=== PATIENT | female | born 1940 | race Caucasian/White ===

== ENCOUNTER → 2016-07-10 | Outpatient (CLI) | payer OTHER ==
[~2016-07-10] MED LIST: ACP20 PO; CHOL1TAB12 PO; CZR50 PO; IBUP-1050 PO; LEVO100T PO; LOSA1TAB38 PO; RABE20TA5 PO; SIMV20TA2 PO; SIMV40TA4 PO; VALA1TAB2 PO
[2016-07-10 15:13] LABS: BLOOD UREA NITROGEN 11 mg/dl (7-18); BUN/CREATININE RATIO 14.5 (10-20); CALCIUM 8.9 mg/dl (8.5-10.1); CARBON DIOXIDE 25 mmol/L (21-32); CHLORIDE 109 mmol/L (98-107); CREATININE 0.77 mg/dl (0.60-1.20); GLUCOSE 89 mg/dl (70-99); POTASSIUM 3.8 mmol/L (3.5-5.1); SODIUM 143 mmol/L (136-145)
[2016-07-10 15:24] LABS: THYROID STIMULATING HORMONE 0.739 uIu/ml (0.300-4.500)
== END | disposition home or self-care (01) ==
LOC: C.LAB 12:06
PROVIDERS: ATTEND Internal Medicine Geriatric Medicine
DX: E03.9 Hypothyroidism, unspecified (principal); E55.9 Vitamin D deficiency, unspecified; I10 Essential (primary) hypertension

== ENCOUNTER 2016-07-21 10:55 | Emergency (ER) | payer OTHER ==
[~2016-07-21] VITALS: Ht 165.1 cm; Wt 104.0 kg
[~2016-07-21 10:55] MED LIST changes: -CHOL1TAB12 PO; -LOSA1TAB38 PO; -RABE20TA5 PO; -SIMV40TA4 PO
[2016-07-21 11:00] VITALS: TEMP 36.5; Ht 165.1 cm; Wt 104.0 kg
[2016-07-21 11:27] VITALS: O2SAT 97
[2016-07-21 11:50] LABS: BASO % 0.4 %; BASO ABS # 0.03 K/uL (0-0.2); COMPLETE YES; EOS % 2.8 %; HEMATOCRIT 41.1 % (37-47); IG% 0.5 %; LYMPH % 34.9 %; LYMPH ABS # 2.61 K/uL (1.2-3.4); MEAN CELL VOLUME 87.3 fL (80-100); MEAN CORPUSCULAR HEMOGLOBIN 29.5 pg (25-34); MEAN CORPUSCULAR HGB CONC 33.8 g/dl (32-36); MONO % 11.1 %; NEUT % 50.3 %; PLATELET COUNT 250 K/uL (130-400); RED BLOOD COUNT 4.71 M/uL (4.2-5.4); WHITE BLOOD COUNT 7.47 K/uL (4.8-10.8)
--- NOTE | 2016-07-21 11:53 | DIAGNOSTIC IMAGING REPORT ---
SINGLE VIEW CHEST CLINICAL HISTORY: Cough. FINDINGS: An AP, portable, upright chest radiograph is compared to study dated 01/11/2015 and correlated with chest CT dated 03/06/2014. The examination is degraded by portable technique, large body habitus, and patient rotation. The cardiomediastinal silhouette is unremarkable. Chronic interstitial thickening is unchanged. No airspace consolidation or pleural effusion is seen. No pneumothorax is identified. The skeletal structures are osteopenic. The bony thorax is grossly intact. IMPRESSION: No acute cardiopulmonary abnormality. Electronically signed by: Philippe Smith M.D. 07/21/2016 11:52 AM Dictated Date/Time: 07/21/2016 11:51 AM
[2016-07-21 12:00] LABS: BUN/CREATININE RATIO 11.6 (10-20); CALCIUM 9.2 mg/dl (8.5-10.1); CREATININE 0.86 mg/dl (0.60-1.20); POTASSIUM 3.7 mmol/L (3.5-5.1)
[2016-07-21] MEDS ORDERED: LOSA1TAB38 PO (12:00)
[2016-07-21] MEDS ORDERED: SIMV40TA4 PO (12:00)
[2016-07-21] MEDS ORDERED: RABE20TA5 PO (12:00)
[2016-07-21] MEDS ORDERED: CHOL1TAB12 PO (12:00)
[2016-07-21] MEDS ORDERED: ALBUTEROL HFA 8 GM INHALER INH STA (12:42)
--- NOTE | 2016-07-21 13:31 | EMERGENCY ROOM VISIT NOTE ---
History Report prepared by Lorna: Santos Saul Under the Supervision of: Dr. Ben Garcia M.D. First contact with patient: 12:10 Chief Complaint: ILLNESS Stated Complaint: DOCTOR SENT IN FOR CHEST XRAY History of Present Illness The patient is a 76 year old female who presents to the Emergency Room with complaints of a persistent cough starting a few weeks ago. She reports a light yellow colored sputum without any blood. She states that she can feel something in her chest rattling at night. She was evaluated by her PCP about a week ago. She was prescribed a Z-pack. She finished the Z-pack 2 days ago without relief. One of her family members recently had pneumonia and she visited the family member very frequently. She denies any fevers, chills, chest pain, nausea, vomiting, abdominal pain, or any other complaints. She does not have a history of smoking cigarettes. Source of History: patient Onset: a few weeks ago Position: other (global) Quality: other (cough) Timing: other (persistent) Modifying Factors (Relieving): other (Z-pack without relief) Associated Symptoms: No abdominal pain, No chest pain, No chills, No fevers , No nausea, No vomiting Review of Systems All systems have been listed, reviewed, and are negative other than those previously mentioned. Please see Additional Medical History Sheet. Past Medical & Surgical Medical Problems: (1) Cold sore (2) Fall (3) GERD (gastroesophageal reflux disease) (4) Hypertension (5) Hypothyroid (6) Knee pain (7) Radius fracture Family History Cancer Diabetes mellitus Gallbladder disease Heart disease Hypertension Seizures Social History Smoking Status: Never Smoker Marital Status: Occupation Status: employed Current/Historical Medications Scheduled Cholecalciferol (Vitamin D3), 3,000 UNITS PO DAILY Levothyroxine Sodium (Synthroid), 100 MCG PO DAILY Losartan Potassium (Cozaar), 100 MG PO DAILY Rabeprazole Sodium (Aciphex), 20 MG PO DAILY Simvastatin (Zocor), 40 MG PO HS Allergies Coded Allergies: Sulfa Drugs (Verified Allergy, Intermediate, HIVES, 07/21/16) Penicillins (Verified Allergy, Unknown, UNKNOWN, 07/21/16) Warfarin and Related (Verified Allergy, Unknown, RASH, 07/21/16) Acetaminophen (Verified Adverse Reaction, Unknown, SKAKING, 07/21/16) Omeprazole (Verified Adverse Reaction, Unknown, HEART PROBLEMS, 07/21/16) Oxycodone (Verified Adverse Reaction, Unknown, SHAKING, 07/21/16) Physical Exam Vital Signs Date Time Temp Pulse Resp B/P Pulse Ox O2 Delivery O2 Flow Rate FiO2 07/21/16 14:39 78 18 170/82 95 07/21/16 12:44 79 22 174/86 96 Room Air 07/21/16 12:14 77 07/21/16 11:27 79 20 211/119 97 Room Air 07/21/16 11:27 97 Room Air 07/21/16 11:00 36.5 87 20 188/98 96 Room Air Physical Exam GENERAL: Patient awake, alert, oriented x 3. Patient follows commands. Patient does not appear toxic. Patient is adequately hydrated and well- nourished. SKIN: No erythema, pallor, cyanosis or rash HEENT: Normal head, pupils equal, reactive to light and accommodation. Ears normal. Oral cavity and posterior pharynx appear normal. Neck: Without adenopathy, no neck vein distention. LUNGS: Expiratory wheezes in all morales. HEART: No murmurs. No gallops. No rubs ABDOMEN: Obese. No masses, no rebound, no hepatomegaly or splenomegaly. EXTREMITIES: No signs of trauma. No pedal or pretibial edema. No calf or thigh tenderness. NEUROLOGIC: Cranial nerves II-XII within normal limits. No gross motor sensory function deficits. Medical Decision & Procedures ER Provider Diagnostic Interpretation: X ray results are stated below per my interpretation and the radiologist's interpretation. SINGLE VIEW CHEST CLINICAL HISTORY: Cough. FINDINGS: An AP, portable, upright chest radiograph is compared to study dated 01/11/2015 and correlated with chest CT dated 03/06/2014. The examination is degraded by portable technique, large body habitus, and patient rotation. The cardiomediastinal silhouette is unremarkable. Chronic interstitial thickening is unchanged. No airspace consolidation or pleural effusion is seen. No pneumothorax is identified. The skeletal structures are osteopenic. The bony thorax is grossly intact. IMPRESSION: No acute cardiopulmonary abnormality. Electronically signed by: Philippe Smith M.D. 07/21/2016 11:52 AM Dictated Date/Time: 07/21/2016 11:51 AM Laboratory Results 07/21/16 11:30 Red Blood Count 4.71, Mean Corpuscular Volume 87.3, Mean Corpuscular Hemoglobin 29.5, Mean Corpuscular Hemoglobin Concent 33.8, Mean Platelet Volume 10.0, Neutrophils (%) (Auto) 50.3, Lymphocytes (%) (Auto) 34.9, Monocytes (%) (Auto) 11.1, Eosinophils (%) (Auto) 2.8, Basophils (%) (Auto) 0.4, Neutrophils # (Auto ) 3.75, Lymphocytes # (Auto) 2.61, Monocytes # (Auto) 0.83, Eosinophils # (Auto ) 0.21, Basophils # (Auto) 0.03 07/21/16 11:30 Test 07/21/16 11:30 White Blood Count 7.47 K/uL (4.8-10.8) Red Blood Count 4.71 M/uL (4.2-5.4) Hemoglobin 13.9 g/dL (12.0-16.0) Hematocrit 41.1 % (37-47) Mean Corpuscular Volume 87.3 fL (80-100) Mean Corpuscular Hemoglobin 29.5 pg (25-34) Mean Corpuscular Hemoglobin Concent 33.8 g/dl (32-36) Platelet Count 250 K/uL (130-400) Mean Platelet Volume 10.0 fL (7.4-10.4) Neutrophils (%) (Auto) 50.3 % Lymphocytes (%) (Auto) 34.9 % Monocytes (%) (Auto) 11.1 % Eosinophils (%) (Auto) 2.8 % Basophils (%) (Auto) 0.4 % Neutrophils # (Auto) 3.75 K/uL (1.4-6.5) Lymphocytes # (Auto) 2.61 K/uL (1.2-3.4) Monocytes # (Auto) 0.83 K/uL (0.11-0.59) Eosinophils # (Auto) 0.21 K/uL (0-0.5) Basophils # (Auto) 0.03 K/uL (0-0.2) RDW Standard Deviation 41.8 fL (36.4-46.3) RDW Coefficient of Variation 13.0 % (11.5-14.5) Immature Granulocyte % (Auto) 0.5 % Immature Granulocyte # (Auto) 0.04 K/uL (0.00-0.02) Anion Gap 10.0 mmol/L (3-11) Est Creatinine Clear Calc Drug Dose 67.6 ml/min Estimated GFR () 76.6 Estimated GFR (Non- 66.1 BUN/Creatinine Ratio 11.6 (10-20) Calcium Level 9.2 mg/dl (8.5-10.1) Total Bilirubin 0.5 mg/dl (0.2-1) Aspartate Amino Transf (AST/SGOT) 28 U/L (15-37) Alanine Aminotransferase (ALT/SGPT) 26 U/L (12-78) Alkaline Phosphatase 101 U/L (45-117) Total Protein 7.4 gm/dl (6.4-8.2) Albumin 3.7 gm/dl (3.4-5.0) Globulin 3.7 gm/dl (2.5-4.0) Albumin/Globulin Ratio 1.0 (0.9-2) Chemistry Specimen Hemolysis Laboratory results as stated above per my review. Medications Administered Medications (Trade) Dose Ordered Sig/Addie Route Start Time Stop Time Status Last Admin Dose Admin Albuterol (Ventolin Hfa Inhaler) 2 puffs NOW STAT INH 07/21/16 12:42 07/21/16 12:44 DC 07/21/16 12:42 2 PUFFS ECG Indication: other (cough) Rate (beats per minute): 74 Rhythm: normal sinus Findings: no acute ischemic change, no ectopy, other (Minimal voltage criteria for LVH) ED Course 1210: Past medical records reviewed. The patient was evaluated in room C10. A complete history and physical examination was performed. 1242: Albuterol 2 puffs INH 1420: Upon reevaluation, the patient appeared to have improvement of her symptoms. I discussed today's findings with her. She verbalized agreement of the treatment plan. The patient was discharged home. Medical Decision Differential diagnosis includes but is not limited to bronchitis, viral/ bacterial infection, pneumonia, asthma. The patient has been coughing for over one week. It is nonproductive. She has no fever. She completed a course of azithromycin. Chest x-ray today does not reveal an infiltrate. White count is not elevated. The patient appears to have a viral cause for her coughing. The patient was started on an albuterol inhaler and will continue using that until the cough is subsided. I do not believe the patient requires additional antibiotics at this time. Impression Primary Impression: Acute bronchitis Scribe Attestation The scribe's documentation has been prepared under my direction and personally reviewed by me in its entirety. I confirm that the note above accurately reflects all work, treatment, procedures, and medical decision making performed by me. Departure Information Dispostion Home / Self-Care Referrals Bc Calix M.D. (PCP) Forms HOME CARE DOCUMENTATION FORM, IMPORTANT VISIT INFORMATION, WORK / SCHOOL INSTRUCTIONS Patient Instructions Bronchitis Acute Dc, My [facility] Additional Instructions 2 puffs of your inhaler every 4 hours until you're cough has subsided. REST Follow-up with your family physician within the next 2 weeks. Return here sooner if you become more short of breath.
[2016-07-21 14:39] VITALS: BP 170/82; PULSE 78; O2SAT 95
== END 2016-07-21 14:39 | disposition home or self-care (01) ==
LOC: C.EDB 10:57 → C.EDC 14:39
DX: J20.9 Acute bronchitis, unspecified (principal); I10 Essential (primary) hypertension; E03.9 Hypothyroidism, unspecified; K21.9 Gastro-esophageal reflux disease without esophagitis; Z87.81 Personal history of (healed) traumatic fracture; Z79.899 Other long term (current) drug therapy; Z88.0 Allergy status to penicillin; Z88.2 Allergy status to sulfonamides; Z88.5 Allergy status to narcotic agent; Z88.6 Allergy status to analgesic agent; Z88.8 Allergy status to other drugs, medicaments and biological substances

== ENCOUNTER → 2016-08-18 | Outpatient (CLI) | payer OTHER ==
[~2016-08-18] MED LIST changes: -ACP20 PO; +CHOL1TAB12 PO; -CZR50 PO; -IBUP-1050 PO; +LOSA1TAB38 PO; +RABE20TA5 PO; -SIMV20TA2 PO; +SIMV40TA4 PO; -VALA1TAB2 PO
--- NOTE | 2016-08-18 13:12 | MAMMOGRAPHY REPORT ---
BILATERAL DIGITAL SCREENING MAMMOGRAM WITH CAD: 08/18/2016 TECHNIQUE: Current study was also evaluated with a Computer Aided Detection (CAD) system. Bilatera l CC and MLO and XCCL views were obtained. COMPARISON: Comparison is made to exams dated: 08/18/2015 mammogram, 08/13/2013 mammogram, 08/12/2012 mammogram, 08/10/2011 mammogram, 08/08/2010 mammogram, and 08/06/2009 mammogram - [facility]. BREAST COMPOSITION: The tissue of both breasts is almost entirely fatty. FINDINGS: No suspicious masses, calcifications, or areas of architectural distortion are noted in e ither breast. There has been no significant interval change compared to prior exams. Again noted ar e multiple small circumscribed benign-appearing masses scattered in bilateral breasts, which are con sidered benign given the multiplicity and bilaterality. A biopsy marker clip is again noted in the right upper outer quadrant. IMPRESSION: ACR BI-RADS CATEGORY 2: BENIGN There is no mammographic evidence of malignancy. A 1 year screening mammogram is recommended. The p atient will receive written notification of the results. Approximately 10% of breast cancers are not detected with mammography. A negative mammographic repor t should not delay biopsy if a clinically suggestive mass is present. Meghan Kwan M.D. ah/:08/18/2016 12:35:14 Agricultural Real Estate Agent: Bhumi THOMAS(Ivy)(M), [facility] letter sent: Normal 1/2 BI-RADS Code: ACR BI-RADS Category 2: Benign
== END | disposition home or self-care (01) ==
LOC: C.MAMM 11:39
PROVIDERS: ATTEND Internal Medicine Geriatric Medicine
DX: Z12.31 Encounter for screening mammogram for malignant neoplasm of breast (principal)

== ENCOUNTER → 2017-01-15 | Outpatient (CLI) | payer OTHER ==
[2017-01-15 12:17] LABS: BASO % 0.6 %; BASO ABS # 0.05 K/uL (0-0.2); COMPLETE YES; EOS % 3.1 %; HEMATOCRIT 38.6 % (37-47); IG% 0.4 %; LYMPH % 27.9 %; LYMPH ABS # 2.52 K/uL (1.2-3.4); MEAN CELL VOLUME 90.2 fL (80-100); MEAN CORPUSCULAR HEMOGLOBIN 30.1 pg (25-34); MEAN CORPUSCULAR HGB CONC 33.4 g/dl (32-36); MEAN PLATELET VOLUME 10.4 fL (7.4-10.4); MONO % 10.5 %; NEUT % 57.5 %; PLATELET COUNT 223 K/uL (130-400); RED BLOOD COUNT 4.28 M/uL (4.2-5.4); WHITE BLOOD COUNT 9.03 K/uL (4.8-10.8)
[2017-01-15 12:35] LABS: BLOOD UREA NITROGEN 12 mg/dl (7-18); CALCIUM 8.7 mg/dl (8.5-10.1); CARBON DIOXIDE 25 mmol/L (21-32); CHLORIDE 106 mmol/L (98-107); CREATININE 0.82 mg/dl (0.60-1.20); GLUCOSE 92 mg/dl (70-99); POTASSIUM 4.4 mmol/L (3.5-5.1); SODIUM 138 mmol/L (136-145)
[2017-01-15 12:45] LABS: CHOLESTEROL 144 mg/dl (0-200); CHOLESTEROL/HDL RATIO 2.8; HDL CHOLESTEROL 52 mg/dl; LDL CHOLESTEROL CALCULATED 64 mg/dl; THYROID STIMULATING HORMONE 0.637 uIu/ml (0.300-4.500); TRIGLYCERIDES 141 mg/dl (0-150); VERY LOW DENSITY LIPOPROT CALC 28 mg/dl
== END | disposition home or self-care (01) ==
LOC: C.LAB 11:08
PROVIDERS: ATTEND Internal Medicine Geriatric Medicine
DX: E78.5 Hyperlipidemia, unspecified (principal); I10 Essential (primary) hypertension; E03.9 Hypothyroidism, unspecified; E55.9 Vitamin D deficiency, unspecified; M19.90 Unspecified osteoarthritis, unspecified site

== ENCOUNTER → 2017-04-02 | Outpatient (CLI) | payer OTHER ==
--- NOTE | 2017-04-02 15:50 | DIAGNOSTIC IMAGING REPORT ---
R SHOULDER MIN 2 VIEWS ROUTINE CLINICAL HISTORY: 77 years-old Female presenting with SHOULDER PAIN. TECHNIQUE: Internal rotation, external rotation, and Grashey views of the right shoulder were obtained. COMPARISON: Plain radiographs of the left shoulder from 2007. FINDINGS: Glenohumeral and acromioclavicular joints congruent. Bony spurring suggested along the undersurface of the acromion. Minimal osteophytosis suggested at the inferior aspect of the humeral head. No acute fracture or malalignment. Visualized portion of the right hemithorax normal. IMPRESSION: Bony spurring along the undersurface of the acromion suggest chronic impingement. Electronically signed by: Cyrus Bui M.D. 04/02/2017 3:48 PM Dictated Date/Time: 04/02/2017 3:47 PM
== END | disposition home or self-care (01) ==
LOC: C.RADBC 15:05
PROVIDERS: ATTEND Internal Medicine Geriatric Medicine
DX: M25.519 Pain in unspecified shoulder (principal); M75.91 Shoulder lesion, unspecified, right shoulder

== ENCOUNTER 2017-08-10 13:35 | Emergency (ER) | payer OTHER ==
[~2017-08-10] VITALS: Ht 165.1 cm; Wt 107.0 kg
[2017-08-10 13:42] VITALS: TEMP 36.4; Ht 165.1 cm; Wt 107.0 kg
[2017-08-10] MEDS ORDERED: SODIUM CHLORIDE 0.9% 1000ML 1,000 ML IV STA (14:02)
[2017-08-10] MEDS ORDERED: MECLIZINE HCL 25 MG TAB PO STA (14:02)
--- NOTE | 2017-08-10 14:12 | EMERGENCY ROOM VISIT NOTE ---
History Report prepared by Lorna: Tammi Melgoza Under the Supervision of: Dr. Manuel Kearns M.D. First contact with patient: 13:45 Chief Complaint: DIZZY Stated Complaint: DIZZY, NECK CRACKS Nursing Triage Summary: patient states she was getting her hair done and "I was geetting my hair washed and the lady put my seat up and all of a sudden I got very very dizzy." patient states she continues to feel dizzy. hx vertigo History of Present Illness The patient is a 77 year old female who presents to the Emergency Room with complaints of an episode of dizziness occurring this morning. The patient states she was laying flat while getting her hair done and when she went to get up she started to feel dizzy. She describes her dizziness as "room spinning". The patient had an episode of vertigo 10 years ago. She reports her symptoms feel similar to when she last had vertigo. The patient states moving her head worsens her dizziness. The patient notes she fell two years ago and broke her wrist two years ago. She states she has had constant neck cracking since she fell. The patient has a history of a bone spur in her right shoulder. She denies any fevers, chills, nausea, vomiting, or urinary burning. Source of History: patient Onset: this morning Position: other (generalized) Quality: other (dizziness) Timing: other (episode) Associated Symptoms: No fevers, No nausea, No vomiting, No urinary symptoms Review of Systems See HPI for pertinent positives and negatives. A total of ten systems were reviewed and were otherwise negative. Past Medical & Surgical Medical Problems: (1) Cold sore (2) Fall (3) GERD (gastroesophageal reflux disease) (4) Hypertension (5) Hypothyroid (6) Knee pain (7) Radius fracture Family History Cancer Diabetes mellitus Gallbladder disease Heart disease Hypertension Seizures Social History Smoking Status: Never Smoker Marital Status: Occupation Status: employed Current/Historical Medications Scheduled Cholecalciferol (Vitamin D3), 3,000 UNITS PO DAILY Levothyroxine Sodium (Synthroid), 100 MCG PO DAILY Losartan Potassium (Cozaar), 100 MG PO DAILY Rabeprazole Sodium (Aciphex), 20 MG PO DAILY Simvastatin (Zocor), 40 MG PO HS Scheduled PRN Meclizine Hcl (Meclizine Hcl), 25 MG PO TID PRN for Dizziness Allergies Coded Allergies: Sulfa Drugs (Verified Allergy, Intermediate, HIVES, 08/10/17) Penicillins (Verified Allergy, Unknown, UNKNOWN, 08/10/17) Warfarin and Related (Verified Allergy, Unknown, RASH, 08/10/17) Acetaminophen (Verified Adverse Reaction, Unknown, SKAKING, 08/10/17) Omeprazole (Verified Adverse Reaction, Unknown, HEART PROBLEMS, 08/10/17) Oxycodone (Verified Adverse Reaction, Unknown, SHAKING, 08/10/17) Physical Exam Vital Signs Date Time Temp Pulse Resp B/P (MAP) Pulse Ox O2 Delivery O2 Flow Rate FiO2 08/10/17 17:11 65 18 140/82 97 08/10/17 16:12 73 15 177/89 97 Room Air 08/10/17 14:31 68 08/10/17 14:16 96 Room Air 08/10/17 13:42 36.4 69 20 149/84 97 Room Air Physical Exam GENERAL: Awake, alert, anxious-appearing, in no distress HENT: Normocephalic, atraumatic. Reproducible vertigo with head movements. Oropharynx unremarkable. Dry MM. EYES: Normal conjunctiva. Sclera non-icteric. Slight bilateral horizontal nystagmus. NECK: Supple. No nuchal rigidity. FROM. No JVD. RESPIRATORY: Clear to auscultation. CARDIAC: Regular rate, normal rhythm. Extremities warm and well perfused. Pulses equal. ABDOMEN: Soft, non-distended. No tenderness to palpation. No rebound or guarding. No masses. RECTAL: Deferred. MUSCULOSKELETAL: Chest examination reveals no tenderness. The back is symmetrical on inspection without obvious abnormality. There is no CVA tenderness to palpation. No joint edema. LOWER EXTREMITIES: Calves are equal size bilaterally and non-tender. No edema. No discoloration. NEURO: Normal sensorium. No sensory or motor deficits noted. normal cerebellar function with [id number], alternating palms. SKIN: No rash or jaundice noted. Medical Decision & Procedures ER Provider Diagnostic Interpretation: Radiology results as stated below per my review and radiologist interpretation: CHEST ONE VIEW PORTABLE FINDINGS: Cardia megaly. Prominent pulmonary vasculature. Diaphragms are smooth. No evidence for focal infiltrate. IMPRESSION: Developing congestive heart failure. The above report was generated using voice recognition software. It may contain grammatical, syntax or spelling errors. Electronically signed by: Kole Chester M.D. NECK ANGIO WITH CONTRAST FINDINGS: Gore Inserter topogram: Unremarkable. Aortic arch: Atherosclerosis of the three-vessel aortic arch. Innominate artery: Common trunk of the innominate artery and left common carotid artery. Right common carotid artery: Patent. Right internal and external carotid arteries: Right carotid bifurcation patent. Right internal and external carotid arteries widely patent. Left common carotid artery: Patent. Left internal and external carotid arteries: Left carotid bifurcation patent. Left internal and external carotid arteries widely patent. Left subclavian artery: Patent. Vertebral arteries: Codominant vertebral arteries. Origins and courses of the bilateral vertebral arteries patent. Other: Limited intracranial evaluation within normal limits. Soft tissues of the neck normal allowing for the phase of contrast. Degenerative changes of the cervical spine. Lung apices clear. IMPRESSION: 1. No evidence of dissection, focal vessel occlusion, or significant stenosis of the cervical arteries. Electronically signed by: Cyrus Bui M.D. ANGIOGRAPHY HEAD COMBO FINDINGS: There is no mass, hematoma, midline shift, or acute infarct. Visualized intracranial internal carotid arteries, distal vertebral arteries, and basilar artery are widely patent. There is no significant stenosis, occlusion, or aneurysm seen within the bilateral ACAs, MCAs, or door to door sales representative. IMPRESSION: No significant stenosis, occlusion, or aneurysm within the [place]. The above report was generated using voice recognition software. It may contain grammatical, syntax or spelling errors. Electronically signed by: Kole Chester M.D. Laboratory Results 08/10/17 14:15 Red Blood Count 4.55, Mean Corpuscular Volume 88.8, Mean Corpuscular Hemoglobin 29.9, Mean Corpuscular Hemoglobin Concent 33.7, Mean Platelet Volume 10.1, Neutrophils (%) (Auto) 61.3, Lymphocytes (%) (Auto) 26.6, Monocytes (%) (Auto) 10.4, Eosinophils (%) (Auto) 1.0, Basophils (%) (Auto) 0.4, Neutrophils # (Auto ) 4.78, Lymphocytes # (Auto) 2.07, Monocytes # (Auto) 0.81, Eosinophils # (Auto ) 0.08, Basophils # (Auto) 0.03 08/10/17 14:15 Test 08/10/17 14:15 08/10/17 15:45 White Blood Count 7.79 K/uL (4.8-10.8) Red Blood Count 4.55 M/uL (4.2-5.4) Hemoglobin 13.6 g/dL (12.0-16.0) Hematocrit 40.4 % (37-47) Mean Corpuscular Volume 88.8 fL (80-100) Mean Corpuscular Hemoglobin 29.9 pg (25-34) Mean Corpuscular Hemoglobin Concent 33.7 g/dl (32-36) Platelet Count 193 K/uL (130-400) Mean Platelet Volume 10.1 fL (7.4-10.4) Neutrophils (%) (Auto) 61.3 % Lymphocytes (%) (Auto) 26.6 % Monocytes (%) (Auto) 10.4 % Eosinophils (%) (Auto) 1.0 % Basophils (%) (Auto) 0.4 % Neutrophils # (Auto) 4.78 K/uL (1.4-6.5) Lymphocytes # (Auto) 2.07 K/uL (1.2-3.4) Monocytes # (Auto) 0.81 K/uL (0.11-0.59) Eosinophils # (Auto) 0.08 K/uL (0-0.5) Basophils # (Auto) 0.03 K/uL (0-0.2) RDW Standard Deviation 44.8 fL (36.4-46.3) RDW Coefficient of Variation 13.7 % (11.5-14.5) Immature Granulocyte % (Auto) 0.3 % Immature Granulocyte # (Auto) 0.02 K/uL (0.00-0.02) Anion Gap 8.0 mmol/L (3-11) Est Creatinine Clear Calc Drug Dose 70.9 ml/min Estimated GFR () 80.6 Estimated GFR (Non- 69.5 BUN/Creatinine Ratio 16.4 (10-20) Calcium Level 9.1 mg/dl (8.5-10.1) Magnesium Level 2.2 mg/dl (1.8-2.4) Total Bilirubin 0.4 mg/dl (0.2-1) Direct Bilirubin 0.2 mg/dl (0-0.2) Aspartate Amino Transf (AST/SGOT) 18 U/L (15-37) Alanine Aminotransferase (ALT/SGPT) 20 U/L (12-78) Alkaline Phosphatase 96 U/L (45-117) Troponin I < 0.015 ng/ml (0-0.045) Total Protein 7.1 gm/dl (6.4-8.2) Albumin 3.7 gm/dl (3.4-5.0) Lipase 151 U/L (73-393) Urine Color YELLOW Urine Appearance CLEAR (CLEAR) Urine pH 7.5 (4.5-7.5) Urine Specific [place] 1.013 (1.000-1.030) Urine Protein NEG (NEG) Urine Glucose (UA) NEG (NEG) Urine Ketones NEG (NEG) Urine Occult Blood NEG (NEG) Urine Nitrite NEG (NEG) Urine Bilirubin NEG (NEG) Urine Urobilinogen NEG (NEG) Urine Leukocyte Esterase TRACE (NEG) Urine WBC (Auto) 1-5 /hpf (0-5) Urine RBC (Auto) 0-4 /hpf (0-4) Urine Hyaline Casts (Auto) 0 /lpf (0-5) Urine Epithelial Cells (Auto) 0-5 /lpf (0-5) Urine Bacteria (Auto) NEG (NEG) Laboratory results reviewed by me Medications Administered Medications (Trade) Dose Ordered Sig/Addie Route Start Time Stop Time Status Last Admin Dose Admin Meclizine HCl (Antivert Tab) 25 mg NOW STAT PO 08/10/17 14:02 08/10/17 14:06 DC 08/10/17 14:24 25 MG Sodium Chloride 1,000 ml @ 999 mls/hr Q1H1M STAT IV 08/10/17 14:02 08/10/17 15:02 DC 08/10/17 14:24 999 MLS/HR ECG Per My Interpretation Indication: weakness Rate (beats per minute): 67 Rhythm: normal sinus Findings: no acute ischemic change, other (normal axis) ED Course 1352: The patient was evaluated in room A2. A complete history and physical exam was performed. 1638: I updated the patient on her test results. 1720: I reevaluated the patient. Discussed results and discharge instructions: She verbalized understanding and agreement. The patient is ready for discharge. Medical Decision I reviewed the patient's past medical history, medications, and the nursing notes as described above. Differential diagnosis: Etiologies such as benign positional vertigo, dehydration, hypovolemia, anemia, tumor, infection, hypoglycemia, electrolyte abnormalities, cardiac sources, intracerebral event, toxicologic, neurologic, as well as others were entertained. The patient is a 77-year-old woman with a past medical history of vertigo who presents emergency department after developing acute onset vertigo after she was at the [facility]. The patient is fatigued appearing but no acute distress, afebrile stable vital signs. On exam the patient has mild horizontal nystagmus that is worsened with head movements. Otherwise patient is neurologically intact including normal cerebellar function with finger-to- nose, alternating palms. EKG unremarkable. Given the patient's mechanism of possible neck manipulation CTA of the head and neck was ordered and negative for acute findings. Moreover the patient showed no bony abnormalities which was a concern given her "clicking" after having a fall 2 years ago. Labs otherwise unremarkable. Patient feeling improved after IV fluids and meclizine. Findings and plan for follow-up reviewed with patient. Patient agreeable and d/c'd per discharge instructions. Medication Reconcilliation Current Medication List: was personally reviewed by me Blood Pressure Screening Patient's blood pressure: Elevated blood pressure Blood pressure disposition: Elevated BP felt to be situational Impression Primary Impression: Vertigo Scribe Attestation The scribe's documentation has been prepared under my direction and personally reviewed by me in its entirety. I confirm that the note above accurately reflects all work, treatment, procedures, and medical decision making performed by me. Departure Information Dispostion Home / Self-Care Prescriptions Meclizine Hcl (MECLIZINE HCL) 25 Mg Tab 25 MG PO TID Y for Dizziness, #21 TAB Prov: Manuel Kearns M.D. 08/10/17 Referrals Bc Calix M.D. (PCP) Forms HOME CARE DOCUMENTATION FORM, IMPORTANT VISIT INFORMATION Patient Instructions ED Vertigo Unspecified, My [facility] Additional Instructions Please follow up with your primary care physician in the next 1-3 days for re- evaluation as well as to review your chest xray and possibly arrange for outpatient heart ultrasound. Your symptoms today are most likely due to peripheral vertigo. Otherwise, your exam, EKG, chest xray, lab results, CT scan of your head and neck with contrast did not show signs of an emergent condition at this time. Meclizine as needed for vertigo. Return to the emergency department for worsening symptoms as described in the accompanying instructions.
[2017-08-10] MEDS ORDERED: OPTIRAY 320 IV PRN (14:15)
[2017-08-10 14:16] VITALS: O2SAT 96
--- NOTE | 2017-08-10 14:18 | DIAGNOSTIC IMAGING REPORT ---
CHEST ONE VIEW PORTABLE CLINICAL HISTORY: CHEST PAIN dyspnea COMPARISON STUDY: 07/21/2016 FINDINGS: Cardia megaly. Prominent pulmonary vasculature. Diaphragms are smooth. No evidence for focal infiltrate. IMPRESSION: Developing congestive heart failure. The above report was generated using voice recognition software. It may contain grammatical, syntax or spelling errors. Electronically signed by: Kole Chester M.D. 08/10/2017 2:17 PM Dictated Date/Time: 08/10/2017 2:16 PM
[2017-08-10 14:24] LABS: BASO % 0.4 %; BASO ABS # 0.03 K/uL (0-0.2); EOS ABS # 0.08 K/uL (0-0.5); HEMATOCRIT 40.4 % (37-47); HEMOGLOBIN 13.6 g/dL (12.0-16.0); IG# 0.02 K/uL (0.00-0.02); LYMPH % 26.6 %; LYMPH ABS # 2.07 K/uL (1.2-3.4); MEAN CELL VOLUME 88.8 fL (80-100); MEAN CORPUSCULAR HEMOGLOBIN 29.9 pg (25-34); MEAN CORPUSCULAR HGB CONC 33.7 g/dl (32-36); MEAN PLATELET VOLUME 10.1 fL (7.4-10.4); MONO % 10.4 %; MONO ABS # 0.81 K/uL (0.11-0.59); NEUT % 61.3 %; NEUT ABS # 4.78 K/uL (1.4-6.5); PLATELET COUNT 193 K/uL (130-400); RED CELL DISTRIBUTION WIDTH CV 13.7 % (11.5-14.5); RED CELL DISTRIBUTION WIDTH SD 44.8 fL (36.4-46.3); WHITE BLOOD COUNT 7.79 K/uL (4.8-10.8)
[2017-08-10 14:43] LABS: ALBUMIN 3.7 gm/dl (3.4-5.0); ALT/SGPT 20 U/L (12-78); AST/SGOT 18 U/L (15-37); BLOOD UREA NITROGEN 14 mg/dl (7-18); CALCIUM 9.1 mg/dl (8.5-10.1); CARBON DIOXIDE 23 mmol/L (21-32); CREATININE 0.82 mg/dl (0.60-1.20); GLUCOSE 106 mg/dl (70-99); POTASSIUM 3.9 mmol/L (3.5-5.1); SODIUM 138 mmol/L (136-145)
[2017-08-10 14:44] LABS: LIPASE 151 U/L (73-393)
[2017-08-10 14:49] LABS: ALKALINE PHOSPHATASE 96 U/L (45-117); TOTAL PROTEIN 7.1 gm/dl (6.4-8.2)
--- NOTE | 2017-08-10 16:07 | DIAGNOSTIC IMAGING REPORT ---
ANGIOGRAPHY HEAD COMBO HISTORY: Mental status change. Vertigo. TECHNIQUE: Multiaxial CT images of the head were performed both before and after the intravenous administration of contrast to evaluate the major cerebral vessels. Maximum intensity projection images were also obtained. A dose lowering technique was utilized adhering to the principles of ALARA. COMPARISON: None. FINDINGS: There is no mass, hematoma, midline shift, or acute infarct. Visualized intracranial internal carotid arteries, distal vertebral arteries, and basilar artery are widely patent. There is no significant stenosis, occlusion, or aneurysm seen within the bilateral ACAs, MCAs, or inspector subassemblies. IMPRESSION: No significant stenosis, occlusion, or aneurysm within the [place]. The above report was generated using voice recognition software. It may contain grammatical, syntax or spelling errors. Electronically signed by: Kole Chetser M.D. 08/10/2017 4:06 PM Dictated Date/Time: 08/10/2017 4:03 PM
--- NOTE | 2017-08-10 16:16 | DIAGNOSTIC IMAGING REPORT ---
NECK ANGIO WITH CONTRAST CLINICAL HISTORY: 77 years-old Female presenting with vertigo, dizziness, neck fracture. TECHNIQUE: Multidetector CT angiography of the neck was performed after the administration of intravenous contrast. 3-D volumetric and/or maximum intensity projection (MIP) images were subsequently reconstructed for review. IV contrast: 93 mL of Optiray. A dose lowering technique was used consistent with the principles of ALARA (as low as reasonably achievable). Stenosis measurements were based on NASCET-like criteria. COMPARISON: None. CT DOSE (mGy.cm): The estimated cumulative dose is 1137.66 mGy.cm. FINDINGS: Technical Fellow topogram: Unremarkable. Aortic arch: Atherosclerosis of the three-vessel aortic arch. Innominate artery: Common trunk of the innominate artery and left common carotid artery. Right common carotid artery: Patent. Right internal and external carotid arteries: Right carotid bifurcation patent. Right internal and external carotid arteries widely patent. Left common carotid artery: Patent. Left internal and external carotid arteries: Left carotid bifurcation patent. Left internal and external carotid arteries widely patent. Left subclavian artery: Patent. Vertebral arteries: Codominant vertebral arteries. Origins and courses of the bilateral vertebral arteries patent. Other: Limited intracranial evaluation within normal limits. Soft tissues of the neck normal allowing for the phase of contrast. Degenerative changes of the cervical spine. Lung apices clear. IMPRESSION: 1. No evidence of dissection, focal vessel occlusion, or significant stenosis of the cervical arteries. Electronically signed by: Cyrus Bui M.D. 08/10/2017 4:14 PM Dictated Date/Time: 08/10/2017 4:08 PM
[2017-08-10] MEDS ORDERED: MECL1TAB42 PO (16:43)
[2017-08-10 17:11] VITALS: BP 140/82; PULSE 65; O2SAT 97
== END 2017-08-10 17:40 | disposition home or self-care (01) ==
LOC: C.EDB 13:36 → C.EDA 17:40
DX: R42 Dizziness and giddiness (principal); I10 Essential (primary) hypertension; E03.9 Hypothyroidism, unspecified; Z79.899 Other long term (current) drug therapy; Z88.0 Allergy status to penicillin; Z88.8 Allergy status to other drugs, medicaments and biological substances

== ENCOUNTER → 2017-08-21 | Outpatient (CLI) | payer OTHER ==
[~2017-08-21] MED LIST changes: +MECL1TAB42 PO
--- NOTE | 2017-08-22 07:56 | MAMMOGRAPHY REPORT ---
BILATERAL DIGITAL SCREENING MAMMOGRAM TOMOSYNTHESIS WITH CAD: 08/21/2017 CLINICAL HISTORY: Routine screening. TECHNIQUE: Breast tomosynthesis in addition to standard 2D mammography was performed. Current study was also evaluated with a Computer Aided Detection (CAD) system. COMPARISON: Comparison is made to exams dated: 08/18/2016 mammogram, 08/18/2015 mammogram, 08/14/2014 m ammogram, 08/13/2013 mammogram, 08/12/2012 mammogram, and 08/10/2011 mammogram - [facility] enter. BREAST COMPOSITION: The tissue of both breasts is almost entirely fatty. FINDINGS: There is stable nodularity bilaterally, and a stable ribbon-shaped biopsy marker clip in th e right upper outer quadrant. No new suspicious mass, architectural distortion or cluster of microca lcifications is seen. IMPRESSION: ACR BI-RADS CATEGORY 1: NEGATIVE There is no mammographic evidence of malignancy. A 1 year screening mammogram is recommended. The pa tient will receive written notification of the results. Approximately 10% of breast cancers are not detected with mammography. A negative mammographic report should not delay biopsy if a clinically suggestive mass is present. Radha Ramirez M.D. ay/:08/21/2017 17:50:16 Mercerizer: Otto THOMAS(R)(M), [facility] letter sent: Normal 1/2 BI-RADS Code: ACR BI-RADS Category 1: Negative
== END | disposition home or self-care (01) ==
LOC: C.MAMM 11:51
PROVIDERS: ATTEND Internal Medicine Geriatric Medicine
DX: Z12.31 Encounter for screening mammogram for malignant neoplasm of breast (principal)

== ENCOUNTER → 2017-10-08 | Outpatient (CLI) | payer OTHER ==
[2017-10-08 14:33] LABS: BASO % 0.5 %; BASO ABS # 0.03 K/uL (0-0.2); EOS % 1.9 %; EOS ABS # 0.12 K/uL (0-0.5); HEMATOCRIT 39.3 % (37-47); IG# 0.01 K/uL (0.00-0.02); LYMPH % 32.2 %; LYMPH ABS # 2.01 K/uL (1.2-3.4); MEAN CELL VOLUME 89.3 fL (80-100); MEAN CORPUSCULAR HEMOGLOBIN 29.5 pg (25-34); MEAN CORPUSCULAR HGB CONC 33.1 g/dl (32-36); MEAN PLATELET VOLUME 10.2 fL (7.4-10.4); MONO % 12.3 %; MONO ABS # 0.77 K/uL (0.11-0.59); NEUT % 52.9 %; PLATELET COUNT 212 K/uL (130-400); RED CELL DISTRIBUTION WIDTH CV 13.7 % (11.5-14.5); WHITE BLOOD COUNT 6.24 K/uL (4.8-10.8)
[2017-10-08 15:25] LABS: ALBUMIN 3.4 gm/dl (3.4-5.0); ALKALINE PHOSPHATASE 85 U/L (45-117); ALT/SGPT 19 U/L (12-78); AST/SGOT 20 U/L (15-37); BLOOD UREA NITROGEN 9 mg/dl (7-18); CALCIUM 8.3 mg/dl (8.5-10.1); CARBON DIOXIDE 26 mmol/L (21-32); CHOLESTEROL 132 mg/dl (0-200); CREATININE 0.81 mg/dl (0.60-1.20); GLUCOSE 88 mg/dl (70-99); LDL CHOLESTEROL CALCULATED 57 mg/dl; POTASSIUM 3.7 mmol/L (3.5-5.1); SODIUM 139 mmol/L (136-145); TOTAL PROTEIN 6.8 gm/dl (6.4-8.2)
== END | disposition home or self-care (01) ==
LOC: C.LAB 12:16
PROVIDERS: ATTEND Internal Medicine Geriatric Medicine
DX: I10 Essential (primary) hypertension (principal); E03.9 Hypothyroidism, unspecified; E78.5 Hyperlipidemia, unspecified

== ENCOUNTER 2020-09-16 19:54 | Inpatient (IN) ==
[2020-09-16 20:52] LABS: Basophils # (auto) 0.03 K/uL (0-0.2); Basophils % (auto) 0.3 %; Eosinophils # (auto) 0.14 K/uL (0-0.5); Eosinophils % (auto) 1.3 %; Hematocrit (blood only) 37.2 % (37-47); Hemoglobin 12.5 g/dL (12.0-16.0); Immature Granulocytes # (auto) 0.09 K/uL (0.00-0.02); Immature Granulocytes % (auto) 0.8 %; Lymphocytes # (auto) 1.21 K/uL (1.2-3.4); Mean Corpuscular Hemoglobin 30.9 pg (25-34); Mean Corpuscular Hgb Conc 33.6 g/dL (32-36); Mean Corpuscular Volume 92.1 fL (80-100); Neutrophils # (auto) 8.46 K/uL (1.4-6.5); Neutrophils % (auto) 76.6 %; Platelet Count 187 K/uL (130-400); RDW Coefficient of Variation 13.4 % (11.5-14.5); RDW Standard Deviation 45.5 fL (36.4-46.3); Red Blood Count 4.04 M/uL (4.2-5.4); White Blood Count 11.03 K/uL (4.8-10.8)
[2020-09-16 21:03] LABS: Partial Thromboplastin Ratio 0.9; Partial Thromboplastin Time 23.2 Seconds (21.0-31.0); Prothrombin Time 10.3 Seconds (9.0-12.0)
[2020-09-16 21:09] LABS: Albumin Level 3.6 gm/dl (3.4-5.0); BUN Creatinine Ratio 15.8 (10-20); Calcium 9.2 mg/dl (8.5-10.1); Creatinine Clr Calc Pharmacy 46.5 ml/min; Est GFR (African American) 57.8; Est GFR (Non-African American) 49.9; Potassium 3.8 mmol/L (3.5-5.1)
[2020-09-16 21:12] LABS: Albumin Globulin Ratio 1.1 (0.9-2); Bilirubin,Total 0.4 mg/dl (0.2-1); Globulin 3.2 gm/dl (2.5-4.0); Total Protein 6.9 gm/dl (6.4-8.2)
[2020-09-16] MEDS: HYDROmorphone INJ 0.5 MG/0.5 ML SYR IV PRN ×2 (21:33→22:04)
[2020-09-16] MEDS ORDERED: HYDROmorphone INJ 0.5 MG/0.5 ML SYR IV STA (22:31)
[2020-09-16 23:02] LABS: Appearance Urine Clear (Clear); Bilirubin Urine Negative (Negative); Blood Urine Negative (Negative); Color Urine Dark Yellow; Glucose Urine UA Negative (Negative); Ketones Urine Trace (Negative); Leukocyte Esterase Urine Negative (Negative); Nitrite Urine Negative (Negative); Protein Urine Negative (Negative); Specific Gravity Urine 1.024 (1.000-1.030); Urobilinogen Urine Negative (Negative)
[2020-09-16] MEDS ORDERED: MAGNESIUM SULFATE / D5W 1 GM/100 ML BAG IV STA (23:56)
[2020-09-16] MEDS ORDERED: diphenhydrAMINE 50 MG/ML VIAL IV STA (23:56)
[2020-09-16] MEDS ORDERED: ACETAMINOPHEN 1,000 MG/100 ML VIAL IV STA (23:56)
[2020-09-16] MEDS ORDERED: DROPERIDOL 5 MG/2 ML VIAL IV STA (23:56)
[2020-09-17] MEDS ORDERED: MELATONIN 3 MG TAB PO PRN (01:04)
[2020-09-17] MEDS ORDERED: HYDROmorphone INJ 0.5 MG/0.5 ML SYR IV PRN ×3 (01:04→15:31)
[2020-09-17] MEDS ORDERED: ONDANSETRON INJ 2 MG/ML 2 ML VIAL IV PRN (01:04)
--- NOTE | 2020-09-17 01:05 | History & Physical Report ---
Date of Service September 17, 2020 Assessment & Plan (1) Chapis-prosthetic femoral shaft fracture: 80 yo F PMHx HTN, HLD, hypothyroidism, GERD, osteopenia, right TKA admitted for right periprosthetic femur fracture. Right periprosthetic femur fracture: Knee replacement performed by Dr. Bush with [facility]. Had a fall today with immediate leg/knee pain. CT femur shows periprosthetic right femur fracture. [facility] consulted. NPO and no anticoagulation for DVT ppx in the event of procedure tomorrow. Patient has several pain medication intolerances. Will give Dilaudid IV as needed for knee pain. Will need evaluation of osteoporosis on discharge given mechanism of fall. HTN: GERD: Continue PPI; pantoprazole while admitted. HLD: Continue home simvastatin. Hypothyroidism: Continue home levothyroxine. Code Status: FULL CODE FEN: NPO with LR at 100cc/hr DVT ppx: holding chemoprophylaxis in the event of procedure tomorrow Dispo: Med/Surg for pain control and Ortho evaluation (2) Dyslipidemia: (3) Hypertension: (4) Hypothyroid: (5) GERD (gastroesophageal reflux disease): History of Present Illness Chief Complaint: right knee pain, fall Primary Care Provider: Juan Goss, 80 yo F PMHx HTN, HLD, hypothyroidism, GERD, osteopenia, right TKA presented to ER for fall at home with right leg pain. Reports that around 6pm she was turning to grab her coffee pot when she fell and hit her right leg on fall, causing immediate right leg pain. In the ER patient had imagining which included CT scan right femur which showed periprosthetic right femur fracture. Hospitalist service was consulted for admission for pain control and Ortho consult for evaluation of possible repair. Patient denies shortness of breath, chest pain, abdominal pain, nausea or vomiting, dizziness or headache. Allergies Allergy/AdvReac Type Severity Reaction Status Date / Time Sulfa (Sulfonamide Allergy Intermediate HIVES Verified 09/16/20 20:27 Antibiotics) Penicillins Allergy Unknown UNKNOWN Verified 09/16/20 20:27 warfarin Allergy Unknown RASH Verified 09/16/20 20:27 gabapentin AdvReac Intermediate dizziness Verified 09/16/20 20:27 amlodipine AdvReac Mild "numbness" Verified 09/16/20 20:27 lisinopril AdvReac Mild cough Verified 09/16/20 20:27 losartan AdvReac Mild cough Verified 09/16/20 20:27 acetaminophen AdvReac Unknown SKAKING Verified 09/16/20 20:27 omeprazole AdvReac Unknown HEART Verified 09/16/20 20:27 PROBLEMS oxycodone AdvReac Unknown SHAKING Verified 09/16/20 20:27 Home Medications Medication Instructions Recorded Confirmed Type albuterol sulfate 90 mcg/actuation 2 puffs INH Q6H PRN #8.5 gm 09/30/19 09/16/20 Rx aerosol inhaler simvastatin 40 mg tablet 40 mg PO QPM #90 tab 02/10/20 09/16/20 Rx cholecalciferol (vitamin D3) 25 3,000 unit PO DAILY cap 02/11/20 09/16/20 History mcg (1,000 unit) capsule losartan 100 mg tablet 100 mg PO DAILY #90 tab 03/11/20 09/16/20 Rx mecobalamin (vitamin B12) 1,000 1,000 mcg SUBLINGUAL DAILY 06/30/20 09/16/20 History mcg disintegrating tablet,sublingual levothyroxine 88 mcg capsule 88 mcg PO DAILY #90 cap 09/01/20 09/16/20 Rx rabeprazole 20 mg tablet,delayed 20 mg PO BID #60 tab 09/01/20 09/16/20 Rx release Past Med/Surg History Medical History Anemia Arthritis Barretts esophagus EGD 05/2020 Chicken pox Cold sore Gallbladder disease History of depression History of hypertension Hx of cholecystitis Hx of fracture of radius Hx of herpes simplex infection Hx of uterine leiomyoma Osteopenia Osteoporosis Radius fracture Tubular adenoma of colon Surgical History History of revision of total knee arthroplasty History of tubal ligation S/P cholecystectomy S/P tonsillectomy S/P total knee arthroplasty S/P tubal ligation Status post wisdom tooth extraction Family History Father Myocardial infarction Diabetes Mother Diabetes Brother Leukemia age 77 Daughter Rheumatoid arthritis Other Breast cancer Colorectal cancer Endometriosis Osteoporosis Uterine cancer Denies family history of Ovarian cancer Social History Smoking Status: Never smoker Second Hand Exposure: No; Hx Alcohol Use: Yes Alcohol type: wine Hx Substance Use: No Preferred Language: French Communication Ability: Effective Visual Impairment: No Limitations Hearing Ability: Normal Mingler Operator Required: No Beliefs That Will Affect Care: None marital status: Current Living Situation: Alone current occupational status: retired Feels Safe at Home: Yes Childhood Exposure to Second-Hand Smoke: No caffeine: Yes Dental Care, Regularly: No Physical Activity Frequency: Does not Exercise Seatbelt Use: always Sunscreen Use: Yes Assistive Devices: Denture - Upper, Denture - Lower, Glasses and Walker Review of Systems Review of Systems: All systems reviewed & are unremarkable except as noted in HPI & below Constitutional: no fever, no chills and no malaise Respiratory: no cough and no dyspnea Cardiovascular: no chest pain, no palpitations and no edema Gastrointestinal: no abdominal pain, no constipation and no diarrhea/loose stools Genitourinary: no dysuria and no hematuria Physical Exam Constitutional: WD/WN, vitals as above Eyes: PERRL, conjunctivae normal, anicteric sclerae ENMT: external ear and nose normal, oropharynx normal Neck: normal visual inspection Respiratory: normal respiratory effort, lungs clear to auscultation Cardiovascular: RRR, no murmur, no edema Gastrointestinal (Abdomen): normal bowel sounds, soft, nontender, no hepatosplenomegaly Musculoskeletal: Extremities: no cyanosis and no clubbing pain in all planes of motion for RLE; DP and PT pulses palpable Skin: no rashes, warm and dry Neurologic: AAOx3, normal speech. Bilateral UE, LE, and face without sensory or motor deficits. No tremor. Psychiatric: A+Ox3, euthymic affect Results & Data Results & Data ([facility]) Vital Signs (Past 12 Hours) Vital Signs Pulse Resp BP Pulse Ox 09/16/20 23:14 96 H 17 154/83 H 98 09/16/20 22:32 91 H 15 97 09/16/20 22:31 91 H 14 134/80 97 09/16/20 22:30 99 H 15 97 09/16/20 22:01 87 15 96 09/16/20 22:00 82 16 147/66 H 97 09/16/20 21:36 89 15 179/76 H 98 09/16/20 21:32 90 18 09/16/20 21:02 84 18 160/67 H 98 09/16/20 21:01 85 23 96 09/16/20 21:00 82 20 160/67 H 97 09/16/20 20:43 83 18 161/79 H 97 09/16/20 20:30 83 17 98 09/16/20 20:04 89 97 09/16/20 20:02 96 H 163/82 H 97 Code Status & VTE Plan VTE Prophylaxis Plan VTE Prophylaxis will be ordered: No Supervising Physician Co-Signing Physician Notes Attending addendum: I have physically seen this patient, have supervised the medical residents activities, and agree with the H&P unless as otherwise noted. Assessment and Plan: Periprosthetic distal femur fracture- NPO Consult [facility] Dilaudid 0.25 mg IV every 3 hours as needed moderate pain Dilaudid 0.5 mg IV every 3 hours as needed severe pain Acetaminophen 650 mg p.o. every 6 hours as needed mild pain or fever IV fluids Zofran 4 mg IV every 6 hours as needed GERD- Resume oral pantoprazole after surgery Hyperlipidemia- Resume oral simvastatin after surgery Hypothyroidism- Resume Levothyroxine after surgery Remaining orders and notations as noted Resident Activity Tracking Resident Involvement: Resident Care Provided Care Provided: Adult Hospital Medicine
[2020-09-17 01:11] LABS: Influenza A virus by PCR Negative (Neg); Influenza B virus by PCR Negative (Neg); RSV by PCR Negative (Neg); SARS CoV2 RNA(COVID-19) InHosp NEGATIVE (Negative)
--- NOTE | 2020-09-17 01:38 | Emergency Department Note ---
Impression & Plan Fall, Chapis-prosthetic femoral shaft fracture ED Provider Note NAME: CHRISTIANA LE AGE: 80 SEX: F : 1940 ARRIVES VIA: Ambulance INFORMANT: Patient, EMS ED PROVIDER(S): Parrish Martinez MD CHIEF COMPLAINT: fall, knee pain HPI: This 80-year-old female who presents emergency department complaining of right knee pain after a fall. The patient reports she has had a number of falls over the past month. The patient reports this evening fell and injured her right knee. She reports she has been unable to get up off the floor due to the pain in her knee. The patient notes she had a replacement knee placed by Dr. Bush. She reports movement makes the pain worse however immobilization makes the pain better. She has not taken anything for the pain prior to arrival. Patient family called EMS who brought the patient to the emergency department. The patient denies any other injury including hitting her head. ROS: See above HPI for pertinent positives & negatives. A total of 10 systems reviewed and were otherwise negative. PAST MEDICAL HISTORY: See Below PAST SURGICAL HISTORY: See Below FAMILY HISTORY: See Below SOCIAL HISTORY: See Below HOME MEDICATIONS: See Below ALLERGIES: See Below VITALS: See Below PHYSICAL EXAMINATION: VITAL SIGNS - Vital signs and nursing notes were reviewed. GENERAL - 80-year-old female appearing stated age who is in no acute distress. Communicates well with provider and answers questions appropriately. SKIN - Without rashes. HEAD - NC/AT. EYES - PERRL with EOMI bilaterally. Sclera anicteric. Palpebral conjunctiva pink and moist with no injection noted. EARS - No deformities of external structures noted on gross examination dewey aterally. NOSE - Midline and without cyanosis. No epistaxis or purulent drainage noted. Septum midline without deviation or septal hematoma noted. MOUTH/OROPHARYNX - Without perioral cyanosis. Buccal mucosa pink and moist and without leukoplakia. Tongue midline with equal elevation of palate bilaterally. No tonsillar hypertrophy, erythema, or exudates noted. NECK - Neck with FROM. Supple to palpation. No nuchal rigidity. LUNGS - Chest wall symmetric without accessory muscle use, intercostals retractions, or central cyanosis. Normal vesicular breath sounds CTA B/L. No wheezes, rales, or rhonchi appreciated. CARDIAC - RRR with S1/S2. No murmur, rubs, or gallops appreciated. ABDOMEN - Abdominal contour without pulsations or visible masses. BS normoactive all four quadrants. No tenderness, palpable masses, hepatosplenomegaly, or ascites noted. EXTREMITIES - No clubbing or peripheral cyanosis. No pretibial edema present. +3/5 radial, posterior tibial, and dorsalis pedis pulses palpated throughout. +5/5 strength noted in UE/LE bilaterally. NEUROLOGIC - Cranial nerves II through XII grossly intact. Sensory intact to light touch throughout. Patellar reflexes +2/4. PSYCH - A&Ox3 and cooperates fully with examiner. Pt is very pleasant and interacts well with examiner. MEDICAL DECISION MAKING: Patient was seen and evaluated as above in room A12. Review was performed of john sing notes and vital signs. I did review pertinent previous visits and patient history. After obtaining a thorough history and physical examination the above work up was performed. This 80-year-old female who presents emergency department complaining of right knee pain. Using shared medical decision making the patient was sent for x-rays of the pelvis femur and tibia. I did not see any evidence of acute fracture dislocation or subluxation therefore the patient was then sent for CAT scans of the lower extremity as she is continuing to have pain. She was given Dilaudid here for her pain. Repeat examination revealed improvement the patient's symptoms. CAT scans are concerning for a fracture around the prosthesis of the right knee. Because of the patient continued need for pain control I did discuss her case with the medicine service who did admit the patient. An order was placed for continuous cardiac monitoring. The monitor shows a rate of 98 with Normal SInus rhythm. The patient was evaluated during a period of high volume and high acuity during the global COVID-19 pandemic, and that diagnosis was suspected/considered upon their initial presentation. Their evaluation, treatment and testing was consistent with current guidelines for patients who present with complaints or symptoms that may be related to COVID-19. Patient was seen while provider was wearing PPE. Triage Nursing notes reviewed. Prior medical records reviewed Vital Signs: reviewed and remarkable for no significant abnormalities Differential diagnosis: Fracture, subluxation, dislocation, contusion, ligamentous injury, neurovascular, compartment syndrome, rhabdomyolysis, as well as other pathologies. ER treatment provided: See below Diagnostics interpreted by me: ECG: Normal sinus rhythm normal EKG no ST elevation or depression QTC is 429 ventricular rate is 81 EKG is compared to 08/10/2017 no significant change was found. Laboratory studies: As stated above and show below. Imaging studies: CT of the right femur: Periprosthetic fracture of the distal femur just superior to the stem and continuing inferiorly to the lateral condylar hardware. Degenerative change of the right hip CT right hip: No acute fracture about the right hip. Moderate hip joint space narrowing with marginal acetabular and femoral head osteophyte formation. CT extremity right lower: No acute fracture or traumatic malalignment. Right tibia arthroplasty stem without evidence of complication. Osteopenia 1 view of the pelvis was interpreted by me shows no evidence of fracture dislocation. With Consultation(s): Ortho, Internal Medicine Past Med/Surg History Medical History Anemia Arthritis Barretts esophagus EGD 05/2020 Chicken pox Cold sore Gallbladder disease History of depression History of hypertension Hx of cholecystitis Hx of fracture of radius Hx of herpes simplex infection Hx of uterine leiomyoma Osteopenia Osteoporosis Radius fracture Tubular adenoma of colon Surgical History History of revision of total knee arthroplasty History of tubal ligation S/P cholecystectomy S/P tonsillectomy S/P total knee arthroplasty S/P tubal ligation Status post wisdom tooth extraction Family History Father Myocardial infarction Diabetes Mother Diabetes Brother Leukemia age 77 Daughter Rheumatoid arthritis Other Breast cancer Colorectal cancer Endometriosis Osteoporosis Uterine cancer Denies family history of Ovarian cancer Social History Smoking Status: Never smoker Second Hand Exposure: No; Hx Alcohol Use: Yes Alcohol type: wine Hx Substance Use: No Preferred Language: Czech Communication Ability: Effective Visual Impairment: No Limitations Hearing Ability: Normal Environmental Remediation Engineer Required: No Beliefs That Will Affect Care: None marital status: Current Living Situation: Alone current occupational status: retired Feels Safe at Home: Yes Childhood Exposure to Second-Hand Smoke: No caffeine: Yes Dental Care, Regularly: No Physical Activity Frequency: Does not Exercise Seatbelt Use: always Sunscreen Use: Yes Assistive Devices: Denture - Upper, Denture - Lower, Glasses and Walker Allergies Allergies Allergy/AdvReac Type Severity Reaction Status Date / Time Sulfa (Sulfonamide Allergy Intermediate HIVES Verified 09/16/20 20:27 Antibiotics) Penicillins Allergy Unknown UNKNOWN Verified 09/16/20 20:27 warfarin Allergy Unknown RASH Verified 09/16/20 20:27 gabapentin AdvReac Intermediate dizziness Verified 09/16/20 20:27 amlodipine AdvReac Mild "numbness" Verified 09/16/20 20:27 lisinopril AdvReac Mild cough Verified 09/16/20 20:27 losartan AdvReac Mild cough Verified 09/16/20 20:27 acetaminophen AdvReac Unknown SKAKING Verified 09/16/20 20:27 omeprazole AdvReac Unknown HEART Verified 09/16/20 20:27 PROBLEMS oxycodone AdvReac Unknown SHAKING Verified 09/16/20 20:27 Home Meds Home Medications Medication Instructions Recorded Confirmed cholecalciferol (vitamin D3) 25 3,000 unit PO DAILY cap 02/11/20 09/16/20 mcg (1,000 unit) capsule mecobalamin (vitamin B12) 1,000 1,000 mcg SUBLINGUAL DAILY 06/30/20 09/16/20 mcg disintegrating tablet,sublingual Previous Rx's Medication Instructions Recorded albuterol sulfate 90 mcg/actuation 2 puffs INH Q6H PRN #8.5 gm 09/30/19 aerosol inhaler simvastatin 40 mg tablet 40 mg PO QPM #90 tab 02/10/20 losartan 100 mg tablet 100 mg PO DAILY #90 tab 03/11/20 levothyroxine 88 mcg capsule 88 mcg PO DAILY #90 cap 09/01/20 rabeprazole 20 mg tablet,delayed 20 mg PO BID #60 tab 09/01/20 release Results & Data (ED) Vital Signs Vital Signs - 24 hr 09/16/20 20:02 09/16/20 20:04 09/16/20 20:30 Pulse Rate 96 H 89 83 Pulse Rate from SpO2 Sensor 95 H 88 83 Respiratory Rate 17 Respiratory Depth Blood Pressure 163/82 H Blood Pressure Mean 109 Blood Pressure Position Pulse Oximetry 97 97 98 Oxygen Delivery Method Room Air Room Air Room Air Sepsis Recent Fever Within 48 Hours Sepsis New/Unexplained Change in Mental Status Sepsis Action Taken by Nursing 09/16/20 20:43 09/16/20 21:00 09/16/20 21:01 Pulse Rate 83 82 85 Pulse Rate from SpO2 Sensor 83 82 85 Respiratory Rate 18 20 23 Respiratory Depth Blood Pressure 161/79 H 160/67 H Blood Pressure Mean 106 98 Blood Pressure Position Pulse Oximetry 97 97 96 Oxygen Delivery Method Room Air Sepsis Recent Fever Within 48 Hours Sepsis New/Unexplained Change in Mental Status Sepsis Action Taken by Nursing 09/16/20 21:02 09/16/20 21:32 09/16/20 21:36 Pulse Rate 84 90 89 Pulse Rate from SpO2 Sensor 89 Respiratory Rate 18 18 15 Respiratory Depth Normal Blood Pressure 160/67 H 179/76 H Blood Pressure Mean 98 110 Blood Pressure Position Lying Pulse Oximetry 98 98 Oxygen Delivery Method Room Air Sepsis Recent Fever Within 48 Hours No Sepsis New/Unexplained Change in Mental Status N/A Sepsis Action Taken by Nursing No Action Required 09/16/20 22:00 09/16/20 22:01 09/16/20 22:30 Pulse Rate 82 87 99 H Pulse Rate from SpO2 Sensor 82 86 100 H Respiratory Rate 16 15 15 Respiratory Depth Blood Pressure 147/66 H Blood Pressure Mean 93 Blood Pressure Position Pulse Oximetry 97 96 97 Oxygen Delivery Method Sepsis Recent Fever Within 48 Hours Sepsis New/Unexplained Change in Mental Status Sepsis Action Taken by Nursing 09/16/20 22:31 09/16/20 22:32 09/16/20 23:14 Pulse Rate 91 H 91 H 96 H Pulse Rate from SpO2 Sensor 91 H 91 H 95 H Respiratory Rate 14 15 17 Respiratory Depth Blood Pressure 134/80 154/83 H Blood Pressure Mean 98 106 Blood Pressure Position Pulse Oximetry 97 97 98 Oxygen Delivery Method Sepsis Recent Fever Within 48 Hours Sepsis New/Unexplained Change in Mental Status Sepsis Action Taken by Jail Medications Current Medication List: was personally reviewed by me Laboratory Data Attestation: I reviewed the patient's lab results. Result diagrams: 09/16/20 20:44 09/16/20 20:44 Lab Results 09/16/20 09/16/20 09/16/20 Range/Units 20:44 20:44 20:44 WBC 11.03 H (4.8-10.8) K/uL RBC 4.04 L (4.2-5.4) M/uL Hgb 12.5 (12.0-16.0) g/dL Hct 37.2 (37-47) % MCV 92.1 (80-100) fL MCH 30.9 (25-34) pg MCHC 33.6 (32-36) g/dL RDW Std Deviation 45.5 (36.4-46.3) fL RDW Coeff of Larry 13.4 (11.5-14.5) % Plt Count 187 (130-400) K/uL MPV 10.0 (7.4-10.4) fL Immature Gran % (Auto) 0.8 % Neut % (Auto) 76.6 % Lymph % (Auto) 11.0 % Monroe % (Auto) 10.0 % Eos % (Auto) 1.3 % Baso % (Auto) 0.3 % Neut # (Auto) 8.46 H (1.4-6.5) K/uL Lymph # (Auto) 1.21 (1.2-3.4) K/uL Monroe # (Auto) 1.10 H (0.11-0.59) K/uL Eos # (Auto) 0.14 (0-0.5) K/uL Baso # (Auto) 0.03 (0-0.2) K/uL Immature Gran # (Auto) 0.09 H (0.00-0.02) K/uL PT 10.3 (9.0-12.0) Seconds INR 1.0 (0.9-1.1) APTT 23.2 (21.0-31.0) Seconds PTT Ratio 0.9 Sodium 140 (136-145) mmol/L Potassium 3.8 (3.5-5.1) mmol/L Chloride 109 H (98-107) mmol/L Carbon Dioxide 26 (21-32) mmol/L Anion Gap 5.0 (3-11) BUN 17 (7-18) mg/dl Creatinine 1.06 (0.6-1.2) mg/dl Est Cr Clr Drug Dosing 46.5 ml/min Est GFR ( Amer) 57.8 Est GFR (Non-Af Amer) 49.9 BUN/Creatinine Ratio 15.8 (10-20) Glucose 109 H (70-99) mg/dl Calcium 9.2 (8.5-10.1) mg/dl Total Bilirubin 0.4 (0.2-1) mg/dl AST 20 (15-37) U/L ALT 17 (12-78) U/L Alkaline Phosphatase 81 (45-117) U/L Total Protein 6.9 (6.4-8.2) gm/dl Albumin 3.6 (3.4-5.0) gm/dl Globulin 3.2 (2.5-4.0) gm/dl Albumin/Globulin Ratio 1.1 (0.9-2) Urine Color Urine Appearance (Clear) Urine pH (4.5-7.5) Ur Specific Eminence (1.000-1.030) Urine Protein (Negative) Urine Glucose (UA) (Negative) Urine Ketones (Negative) Urine Blood (Negative) Urine Nitrite (Negative) Urine Bilirubin (Negative) Urine Urobilinogen (Negative) Ur Leukocyte Esterase (Negative) 09/16/20 Range/Units 22:15 WBC (4.8-10.8) K/uL RBC (4.2-5.4) M/uL Hgb (12.0-16.0) g/dL Hct (37-47) % MCV (80-100) fL MCH (25-34) pg MCHC (32-36) g/dL RDW Std Deviation (36.4-46.3) fL RDW Coeff of Larry (11.5-14.5) % Plt Count (130-400) K/uL MPV (7.4-10.4) fL Immature Gran % (Auto) % Neut % (Auto) % Lymph % (Auto) % Monroe % (Auto) % Eos % (Auto) % Baso % (Auto) % Neut # (Auto) (1.4-6.5) K/uL Lymph # (Auto) (1.2-3.4) K/uL Monroe # (Auto) (0.11-0.59) K/uL Eos # (Auto) (0-0.5) K/uL Baso # (Auto) (0-0.2) K/uL Immature Gran # (Auto) (0.00-0.02) K/uL PT (9.0-12.0) Seconds INR (0.9-1.1) APTT (21.0-31.0) Seconds PTT Ratio Sodium (136-145) mmol/L Potassium (3.5-5.1) mmol/L Chloride (98-107) mmol/L Carbon Dioxide (21-32) mmol/L Anion Gap (3-11) BUN (7-18) mg/dl Creatinine (0.6-1.2) mg/dl Est Cr Clr Drug Dosing ml/min Est GFR ( Amer) Est GFR (Non-Af Amer) BUN/Creatinine Ratio (10-20) Glucose (70-99) mg/dl Calcium (8.5-10.1) mg/dl Total Bilirubin (0.2-1) mg/dl AST (15-37) U/L ALT (12-78) U/L Alkaline Phosphatase (45-117) U/L Total Protein (6.4-8.2) gm/dl Albumin (3.4-5.0) gm/dl Globulin (2.5-4.0) gm/dl Albumin/Globulin Ratio (0.9-2) Urine Color Dark Yellow Urine Appearance Clear (Clear) Urine pH 5.0 (4.5-7.5) Ur Specific Eminence 1.024 (1.000-1.030) Urine Protein Negative (Negative) Urine Glucose (UA) Negative (Negative) Urine Ketones Trace H (Negative) Urine Blood Negative (Negative) Urine Nitrite Negative (Negative) Urine Bilirubin Negative (Negative) Urine Urobilinogen Negative (Negative) Ur Leukocyte Esterase Negative (Negative) Administered Medications Discontinued Medications Diphenhydramine HCl (Diphenhydramine 50 Mg/Ml Vial) 25 mg IV NOW STA Stop: 09/16/20 23:57 Last Admin: 09/17/20 00:04 Dose: 25 mg Documented by: [id number] Droperidol (Droperidol 5 Mg/2 Ml Vial) 0.625 mg IV ONE STA Stop: 09/16/20 23:57 Last Admin: 09/17/20 00:05 Dose: 0.625 mg Documented by: [id number] Hydromorphone HCl (Hydromorphone Inj 0.5 Mg/0.5 Ml Syr) 0.5 mg IV Q20M PRN PRN Reason: Severe Pain (Rating 7,8,9,10) Stop: 09/30/20 20:12 Last Admin: 09/16/20 22:04 Dose: 0.5 mg Documented by: [id number] Admin: 09/16/20 21:33 Dose: 0.5 mg Documented by: [id number] Hydromorphone HCl (Hydromorphone Inj 0.5 Mg/0.5 Ml Syr) 0.5 mg IV NOW STA Stop: 09/16/20 22:32 Last Admin: 09/16/20 23:15 Dose: 0.5 mg Documented by: [id number] Hydromorphone HCl (Hydromorphone Inj 0.5 Mg/0.5 Ml Syr) 0.5 mg IV Q3H PRN PRN Reason: Pain (6,7,8,9,10) Stop: 10/01/20 01:03 Last Admin: 09/17/20 08:57 Dose: 0.5 mg Documented by: [id number] Admin: 09/17/20 05:47 Dose: 0.5 mg Documented by: [id number] Hydromorphone HCl (Hydromorphone Inj 0.5 Mg/0.5 Ml Syr) 0.5 mg IV Q2H PRN PRN Reason: Pain (6,7,8,9,10) Stop: 10/01/20 01:03 Last Admin: 09/17/20 15:22 Dose: 0.5 mg Documented by: [id number] Admin: 09/17/20 12:52 Dose: 0.5 mg Documented by: [id number] Admin: 09/17/20 11:08 Dose: 0.5 mg Documented by: [id number] Hydromorphone HCl (Hydromorphone Inj 1 Mg/Ml Syringe) 1 mg IV Q2H PRN PRN Reason: Pain Stop: 10/01/20 16:18 Last Admin: 09/17/20 18:43 Dose: 1 mg Documented by: [id number] Hydromorphone HCl (Hydromorphone Inj 1 Mg/Ml Syringe) 1 mg IV NOW STA Stop: 09/17/20 16:23 Last Admin: 09/17/20 16:26 Dose: 1 mg Documented by: [id number] Acetaminophen (Ofirmev) 1,000 mg in 100 mls @ 400 mls/hr IV NOW STA Stop: 09/17/20 00:10 Last Infusion: 09/17/20 00:42 Dose: 0 mls/hr Documented by: [id number] Admin: 09/17/20 00:06 Dose: 400 mls/hr Documented by: [id number] Magnesium Sulfate/Dextrose (Magnesium Sulfate / D5w) 1 gm in 100 mls @ 100 mls/hr IV NOW STA Stop: 09/17/20 00:55 Last Infusion: 09/17/20 01:29 Dose: 0 mls/hr Documented by: [id number] Admin: 09/17/20 00:06 Dose: 100 mls/hr Documented by: [id number] Lactated Ringer's (Lr) 1,000 mls @ 100 mls/hr IV .Q10H GALDINO Stop: 10/17/20 01:03 Last Admin: 09/17/20 12:16 Dose: 100 mls/hr Documented by: [id number] Infusion: 09/17/20 12:16 Dose: 0 mls/hr Documented by: [id number] Admin: 09/17/20 02:59 Dose: 100 mls/hr Documented by: [id number] Levothyroxine Sodium (Levothyroxine Sodium 88 Mcg Tablet) 88 mcg PO DAILYBB GALDINO Stop: 10/17/20 06:29 Last Admin: 09/17/20 05:47 Dose: 88 mcg Documented by: [id number] Losartan Potassium (Losartan Potassium 50 Mg Tab) 100 mg PO DAILY GALDINO Stop: 10/17/20 08:59 Last Admin: 09/17/20 07:39 Dose: 100 mg Documented by: [id number] Pantoprazole Sodium (Pantoprazole 40 Mg Tab) 40 mg PO BID GALDINO Stop: 10/17/20 08:59 Last Admin: 09/17/20 07:39 Dose: 40 mg Documented by: [id number] Imaging Data Radiologist's Impression: Chest X-Ray 09/16/20 20:13 XR chest 1V portable HISTORY: Fall. Pt rt hip pain COMPARISON: 08/10/2017. FINDINGS: No focal lung consolidations to suggest pneumonia. No evidence for pulmonary edema. The heart is normal in size. No pleural effusions. No pneumothorax. Prior cholecystectomy. No rib fractures. IMPRESSION: No acute process. ACT 112: Negative or not required by law. Electronically signed by: Jorge Chamberlain M.D. 09/17/2020 8:03 AM Femur X-Ray 09/16/20 20:13 XR femur RT 2V routine, XR tibia fibula RT 2V, XR pelvis 1-2V routine CLINICAL HISTORY: Pt c/o Rt hip pain COMPARISON STUDY: None. FINDINGS: [id number] osteoarthritis within the bilateral hips. No fracture or dislocation within the pelvis or hips. The sacrum is intact. Nondisplaced periprosthetic fracture within the distal right femur. The bones are osteopenic. There is a right total knee arthroplasty. The hardware is intact. There is a small knee effusion. No fractures within the right tibia or fibula. IMPRESSION: 1. Nondisplaced periprosthetic fracture within the distal right femur. 2. No fracture or dislocation within the pelvis, hips, right tibia, or right fibula. ACT 112: Negative or not required by law. Electronically signed by: Jorge Chamberlain M.D. 09/17/2020 7:30 AM Pelvis X-Ray 09/16/20 20:13 XR femur RT 2V routine, XR tibia fibula RT 2V, XR pelvis 1-2V routine CLINICAL HISTORY: Pt c/o Rt hip pain COMPARISON STUDY: None. FINDINGS: [id number] osteoarthritis within the bilateral hips. No fracture or dislocation within the pelvis or hips. The sacrum is intact. Nondisplaced periprosthetic fracture within the distal right femur. The bones are osteopenic. There is a right total knee arthroplasty. The hardware is intact. There is a small knee effusion. No fractures within the right tibia or fibula. IMPRESSION: 1. Nondisplaced periprosthetic fracture within the distal right femur. 2. No fracture or dislocation within the pelvis, hips, right tibia, or right fibula. ACT 112: Negative or not required by law. Electronically signed by: Jorge Chamberlain M.D. 09/17/2020 7:30 AM Tibia/Fibula X-Ray 09/16/20 20:14 XR femur RT 2V routine, XR tibia fibula RT 2V, XR pelvis 1-2V routine CLINICAL HISTORY: Pt c/o Rt hip pain COMPARISON STUDY: None. FINDINGS: [id number] osteoarthritis within the bilateral hips. No fracture or dislocation within the pelvis or hips. The sacrum is intact. Nondisplaced periprosthetic fracture within the distal right femur. The bones are osteopenic. There is a right total knee arthroplasty. The hardware is intact. There is a small knee effusion. No fractures within the right tibia or fibula. IMPRESSION: 1. Nondisplaced periprosthetic fracture within the distal right femur. 2. No fracture or dislocation within the pelvis, hips, right tibia, or right fibula. ACT 112: Negative or not required by law. Electronically signed by: Jorge Chamberlain M.D. 09/17/2020 7:[address] 09/16/20 22:08 CT hip RT wo con CLINICAL HISTORY: Right hip pain. COMPARISON STUDY: Right femur radiographs June 27, 2015 and September 16, 2020. TECHNIQUE: Axial images of the right hip were obtained without IV contrast. Sagittal and coronal reconstructions were viewed. Automated exposure control was utilized for the study. A dose lowering technique was utilized adhering to the principles of ALARA. FINDINGS: Incidental note is made of a Galindo balloon within the bladder. There is gas within the bladder. No acute fracture within the right hip is noted. There is moderate right hip osteoarthritis. No evidence for avascular necrosis is noted. There is no suspicious osseous lesion within the right hip. No hematoma is identified within the adjacent soft tissues. There is no right inguinal lymphadenopathy. No acute fracture is identified within visualized portions of the right hemipelvis. IMPRESSION: 1. No acute fracture or dislocation within the right hip. 2. Moderate osteoarthritis of the right hip. ACT 112: Negative or not required by law. Electronically signed by: Favio Cobos M.D. 09/17/2020 7:[address] 09/16/20 22:29 CT femur RT wo con CLINICAL HISTORY: Right knee pain. COMPARISON STUDY: Right knee and right femur radiographs June 27, 2015. TECHNIQUE: Axial images of the right femur were obtained without IV contrast. Sagittal and coronal reconstructions were viewed. Automated exposure control was utilized for the study. A dose lowering technique was utilized adhering to the principles of ALARA. FINDINGS: Note is made of an acute comminuted mildly displaced periprosthetic fracture of the distal right femur. Fracture begins 2.4 cm proximal to the femoral component of the right knee arthroplasty. The fracture extends to the lateral metadiaphysis of the right femur. The CT of the right tibia and fibula will be reported separately. No suspicious osseous lesions are noted. Alignment of the right hip is anatomic. There is no proximal right femoral fracture. IMPRESSION: Acute comminuted mildly displaced periprosthetic fracture of the right femur, as described above ACT 112: Negative or not required by law. Electronically signed by: Favio Cobos M.D. 09/17/2020 7:[address] 09/16/20 22:29 RIGHT TIBIA/FIBULA CT CT DOSE: HISTORY: Right lower leg pain. TECHNIQUE: Multiaxial CT images of the right lower leg were performed and reformatted in the sagittal and coronal plane without the use of contrast. A dose lowering technique was utilized adhering to the principles of ALARA. COMPARISON: None. FINDINGS: There is a right total knee arthroplasty. The hardware appears intact. No fracture or dislocation within the right tibia or fibula. IMPRESSION: No fractures within the right lower leg. ACT 112: Negative or not required by law. Electronically signed by: Jorge Chamberlain M.D. 09/17/2020 7:25 AM Discharge Plan Visit Data Chief Complaint: Fall Stated Complaint: FALL, KNEE PAIN ED Provider: Parrish Martinez Discharge Problem: Fall, Chapis-prosthetic femoral shaft fracture Patient Disposition: Admitted As Inpatient Discharge Problem: Fall Qualifiers: Encounter type: initial encounter Qualified Code(s): W19.XXXA - Unspecified fall, initial encounter
[2020-09-17] MEDS ORDERED: NALOXONE HCL 0.4 MG/1 ML VIAL/CARP IV PRN (02:36)
[2020-09-17] MEDS ORDERED: POLYETHYLENE (MIRALAX) 17 GM PACK PO PRN (02:36)
[2020-09-17] MEDS ORDERED: ALBUTEROL HFA 8 GM INHALER INH PRN (02:44)
[2020-09-17] MEDS: LACTATED RINGER'S 1,000 ML IV SCH ×2 (02:59→12:16)
[2020-09-17] MEDS: HYDROmorphone INJ 0.5 MG/0.5 ML SYR IV PRN ×5 (05:47→15:22)
[2020-09-17] MEDS ORDERED: LEVOTHYROXINE SODIUM 88 MCG TABLET PO SCH (06:30)
--- NOTE | 2020-09-17 07:08 | CT Scan Report ---
CT hip RT wo con CLINICAL HISTORY: Right hip pain. COMPARISON STUDY: Right femur radiographs June 27, 2015 and September 16, 2020. TECHNIQUE: Axial images of the right hip were obtained without IV contrast. Sagittal and coronal raul nstructions were viewed. Automated exposure control was utilized for the study. A dose lowering tech nique was utilized adhering to the principles of ALARA. FINDINGS: Incidental note is made of a Galindo balloon within the bladder. There is gas within the blad patricio. No acute fracture within the right hip is noted. There is moderate right hip osteoarthritis. No evidence for avascular necrosis is noted. There is no suspicious osseous lesion within the right hip. No hematoma is identified within the adjacent soft tissues. There is no right inguinal lymphadenopat hy. No acute fracture is identified within visualized portions of the right hemipelvis. IMPRESSION: 1. No acute fracture or dislocation within the right hip. 2. Moderate osteoarthritis of the right hip. ACT 112: Negative or not required by law. Electronically signed by: Favio Cobos M.D. 09/17/2020 7:07 AM
--- NOTE | 2020-09-17 07:12 | CT Scan Report ---
CT femur RT wo con CLINICAL HISTORY: Right knee pain. COMPARISON STUDY: Right knee and right femur radiographs June 27, 2015. TECHNIQUE: Axial images of the right femur were obtained without IV contrast. Sagittal and coronal re constructions were viewed. Automated exposure control was utilized for the study. A dose lowering te chnique was utilized adhering to the principles of ALARA. FINDINGS: Note is made of an acute comminuted mildly displaced periprosthetic fracture of the distal right femur. Fracture begins 2.4 cm proximal to the femoral component of the right knee arthroplasty. The fracture extends to the lateral metadiaphysis of the right femur. The CT of the right tibia and fibula will be reported separately. No suspicious osseous lesions are noted. Alignment of the right h ip is anatomic. There is no proximal right femoral fracture. IMPRESSION: Acute comminuted mildly displaced periprosthetic fracture of the right femur, as describe d above ACT 112: Negative or not required by law. Electronically signed by: Favio Cobos M.D. 09/17/2020 7:11 AM
--- NOTE | 2020-09-17 07:27 | CT Scan Report ---
RIGHT TIBIA/FIBULA CT CT DOSE: HISTORY: Right lower leg pain. TECHNIQUE: Multiaxial CT images of the right lower leg were performed and reformatted in the sagittal and coronal plane without the use of contrast. A dose lowering technique was utilized adhering to t he principles of ALARA. COMPARISON: None. FINDINGS: There is a right total knee arthroplasty. The hardware appears intact. No fracture or dislo cation within the right tibia or fibula. IMPRESSION: No fractures within the right lower leg. ACT 112: Negative or not required by law. Electronically signed by: Jorge Chamberlain M.D. 09/17/2020 7:25 AM
--- NOTE | 2020-09-17 07:32 | XRay Report ---
XR femur RT 2V routine, XR tibia fibula RT 2V, XR pelvis 1-2V routine CLINICAL HISTORY: Pt c/o Rt hip pain COMPARISON STUDY: None. FINDINGS: [id number] osteoarthritis within the bilateral hips. No fracture or dislocation withi n the pelvis or hips. The sacrum is intact. Nondisplaced periprosthetic fracture within the distal ri ght femur. The bones are osteopenic. There is a right total knee arthroplasty. The hardware is intact . There is a small knee effusion. No fractures within the right tibia or fibula. IMPRESSION: 1. Nondisplaced periprosthetic fracture within the distal right femur. 2. No fracture or dislocation within the pelvis, hips, right tibia, or right fibula. ACT 112: Negative or not required by law. Electronically signed by: Jorge Chamberlain M.D. 09/17/2020 7:30 AM
--- NOTE | 2020-09-17 08:04 | XRay Report ---
XR chest 1V portable HISTORY: Fall. Pt rt hip pain COMPARISON: 08/10/2017. FINDINGS: No focal lung consolidations to suggest pneumonia. No evidence for pulmonary edema. The hea rt is normal in size. No pleural effusions. No pneumothorax. Prior cholecystectomy. No rib fractures. IMPRESSION: No acute process. ACT 112: Negative or not required by law. Electronically signed by: Jorge Chamberlain M.D. 09/17/2020 8:03 AM
--- NOTE | 2020-09-17 08:10 | Hospitalist Progress Note ---
Date of Service September 17, 2020 Assessment & Plan (1) Cahpis-prosthetic femoral shaft fracture: 80 yo F PMHx HTN, HLD, hypothyroidism, GERD, osteopenia, right TKA admitted for right periprosthetic femur fracture. #Right periprosthetic femur fracture: Hx of Knee replacement performed by Dr. Bush with [facility]. Had a fall today with immediate leg/knee pain, CT femur shows periprosthetic right femur fracture.[facility] consulted, Has remained n.p.o. overnight in the event that procedure will be performed. Will need evaluation of osteoporosis on discharge given mechanism of fall. Patient has multiple medication intolerances, Dilaudid for pain control. -IV Dilaudid for pain control -Increased frequency to every 2 hours as needed as patient reports her pain is not well controlled -Orthopedics consulted following recommendations -plan to tx pt to [facility] HTN: Continue losartan 100 mg daily GERD: Continue PPI; pantoprazole while admitted. HLD: Continue home simvastatin. Hypothyroidism: Continue home levothyroxine. FENa: Full code Code Status: N.p.o. with LR at 100 DVT PPX: Holding in the event surgery is required PT/OT: Consulted Dispo: Jose Juan Luke MD PGY 2, FCM This chart was completed utilizing [employer] dictation voice recognition software. Grammatical errors, random word insertions, pronoun errors, and in complete sentences are an occasional consequence of the system. Any questions or concerns about the content, text, or information contained within the body of this dictation should be addressed directly to the physician for clarification. (2) Dyslipidemia: (3) Hypertension: (4) Hypothyroid: (5) GERD (gastroesophageal reflux disease): Admission and Anticipated Discharge Date Admission Date: September 17, 2020 Subjective Patient lying in bed this morning endorsing pain in her right lower extremity. Patient relate a history to me similar to that described in the admission H&P. Patient endorses she was previously in her usual state of health, and had no acute concerns other than her lower extremity. She states her pain is presently not well controlled. Questions relate to whether she will need surgery or not, concerns relate to pain control. Physical Exam Physical Exam: General: Lying in bed in intermittent pain HEENT: Normocephalic atraumatic Neck: Normal to visual inspection, trachea midline Cardiac: Regular rate and rhythm I did not appreciate any significant murmurs rubs or gallops, normal S1, normal S2, negative calf tenderness on the left side Respiratory: Clear to auscultation bilaterally with symmetrical chest expansion did not appreciate any significant wheezes, rales, rhonchi GI: Soft, nontender, nondistended, bowel sounds present in all 4 quadrants MSK: Right lower extremity painful Neuro: Alert and oriented x4 Psych: Calm and cooperative with the interview Results & Data Results & Data ([facility]) Vital Signs (Past 12 Hours) Vital Signs Temp Pulse Pulse Resp BP BP Pulse Ox 09/17/20 07:24 37.0 C 90 16 164/77 H 97 09/17/20 02:30 36.5 C 104 H 20 160/77 H 97 09/16/20 23:14 96 H 17 154/83 H 98 09/16/20 22:32 91 H 15 97 09/16/20 22:31 91 H 14 134/80 97 09/16/20 22:30 99 H 15 97 09/16/20 22:01 87 15 96 09/16/20 22:00 82 16 147/66 H 97 09/16/20 21:36 89 15 179/76 H 98 09/16/20 21:32 90 18 09/16/20 21:02 84 18 160/67 H 98 09/16/20 21:01 85 23 96 09/16/20 21:00 82 20 160/67 H 97 09/16/20 20:43 83 18 161/79 H 97 09/16/20 20:30 83 17 98 Laboratory Results 09/17/20 09/17/20 09/16/20 Range/Units Unknown Unknown 22:15 WBC (4.8-10.8) K/uL RBC (4.2-5.4) M/uL Hgb (12.0-16.0) g/dL Hct (37-47) % MCV (80-100) fL MCH (25-34) pg MCHC (32-36) g/dL RDW Std Deviation (36.4-46.3) fL RDW Coeff of Larry (11.5-14.5) % Plt Count (130-400) K/uL MPV (7.4-10.4) fL Immature Gran % (Auto) % Neut % (Auto) % Lymph % (Auto) % Miner % (Auto) % Eos % (Auto) % Baso % (Auto) % Neut # (Auto) (1.4-6.5) K/uL Lymph # (Auto) (1.2-3.4) K/uL Miner # (Auto) (0.11-0.59) K/uL Eos # (Auto) (0-0.5) K/uL Baso # (Auto) (0-0.2) K/uL Immature Gran # (Auto) (0.00-0.02) K/uL PT (9.0-12.0) Seconds INR (0.9-1.1) APTT (21.0-31.0) Seconds PTT Ratio Sodium (136-145) mmol/L Potassium (3.5-5.1) mmol/L Chloride (98-107) mmol/L Carbon Dioxide (21-32) mmol/L Anion Gap (3-11) BUN (7-18) mg/dl Creatinine (0.6-1.2) mg/dl Est Cr Clr Drug Dosing ml/min Est GFR ( Amer) Est GFR (Non-Af Amer) BUN/Creatinine Ratio (10-20) Glucose (70-99) mg/dl Calcium (8.5-10.1) mg/dl Total Bilirubin (0.2-1) mg/dl AST (15-37) U/L ALT (12-78) U/L Alkaline Phosphatase (45-117) U/L Total Protein (6.4-8.2) gm/dl Albumin (3.4-5.0) gm/dl Globulin (2.5-4.0) gm/dl Albumin/Globulin Ratio (0.9-2) Urine Color Dark Yellow Urine Appearance Clear (Clear) Urine pH 5.0 (4.5-7.5) Ur Specific [place] 1.024 (1.000-1.030) Urine Protein Negative (Negative) Urine Glucose (UA) Negative (Negative) Urine Ketones Trace H (Negative) Urine Blood Negative (Negative) Urine Nitrite Negative (Negative) Urine Bilirubin Negative (Negative) Urine Urobilinogen Negative (Negative) Ur Leukocyte Esterase Negative (Negative) COVID-19 Eval Order CovFluRsv at [facility] SARS-CoV-2 (PCR) NEGATIVE (Negative) Influenza Type A (PCR) Negative (Neg) Influenza Type B (PCR) Negative (Neg) RSV (RT-PCR) Negative (Neg) 09/16/20 09/16/20 09/16/20 Range/Units 20:44 20:44 20:44 WBC 11.03 H (4.8-10.8) K/uL RBC 4.04 L (4.2-5.4) M/uL Hgb 12.5 (12.0-16.0) g/dL Hct 37.2 (37-47) % MCV 92.1 (80-100) fL MCH 30.9 (25-34) pg MCHC 33.6 (32-36) g/dL RDW Std Deviation 45.5 (36.4-46.3) fL RDW Coeff of Larry 13.4 (11.5-14.5) % Plt Count 187 (130-400) K/uL MPV 10.0 (7.4-10.4) fL Immature Gran % (Auto) 0.8 % Neut % (Auto) 76.6 % Lymph % (Auto) 11.0 % Miner % (Auto) 10.0 % Eos % (Auto) 1.3 % Baso % (Auto) 0.3 % Neut # (Auto) 8.46 H (1.4-6.5) K/uL Lymph # (Auto) 1.21 (1.2-3.4) K/uL Miner # (Auto) 1.10 H (0.11-0.59) K/uL Eos # (Auto) 0.14 (0-0.5) K/uL Baso # (Auto) 0.03 (0-0.2) K/uL Immature Gran # (Auto) 0.09 H (0.00-0.02) K/uL PT 10.3 (9.0-12.0) Seconds INR 1.0 (0.9-1.1) APTT 23.2 (21.0-31.0) Seconds PTT Ratio 0.9 Sodium 140 (136-145) mmol/L Potassium 3.8 (3.5-5.1) mmol/L Chloride 109 H (98-107) mmol/L Carbon Dioxide 26 (21-32) mmol/L Anion Gap 5.0 (3-11) BUN 17 (7-18) mg/dl Creatinine 1.06 (0.6-1.2) mg/dl Est Cr Clr Drug Dosing 46.5 ml/min Est GFR ( Amer) 57.8 Est GFR (Non-Af Amer) 49.9 BUN/Creatinine Ratio 15.8 (10-20) Glucose 109 H (70-99) mg/dl Calcium 9.2 (8.5-10.1) mg/dl Total Bilirubin 0.4 (0.2-1) mg/dl AST 20 (15-37) U/L ALT 17 (12-78) U/L Alkaline Phosphatase 81 (45-117) U/L Total Protein 6.9 (6.4-8.2) gm/dl Albumin 3.6 (3.4-5.0) gm/dl Globulin 3.2 (2.5-4.0) gm/dl Albumin/Globulin Ratio 1.1 (0.9-2) Urine Color Urine Appearance (Clear) Urine pH (4.5-7.5) Ur Specific Sav[place] (1.000-1.030) Urine Protein (Negative) Urine Glucose (UA) (Negative) Urine Ketones (Negative) Urine Blood (Negative) Urine Nitrite (Negative) Urine Bilirubin (Negative) Urine Urobilinogen (Negative) Ur Leukocyte Esterase (Negative) COVID-19 Eval Order SARS-CoV-2 (PCR) (Negative) Influenza Type A (PCR) (Neg) Influenza Type B (PCR) (Neg) RSV (RT-PCR) (Neg) Medications Administered Current Inpatient Medications Albuterol (Albuterol Hfa 8 Gm Inhaler) 2 puffs INH Q6H PRN PRN Reason: shortness of breath or wheezing Stop: 10/17/20 02:43 Hydromorphone HCl (Hydromorphone Inj 0.5 Mg/0.5 Ml Syr) 0.25 mg IV Q3H PRN PRN Reason: Pain (1,2,3,4,5) & Pre PT Stop: 10/01/20 01:03 Hydromorphone HCl (Hydromorphone Inj 0.5 Mg/0.5 Ml Syr) 0.5 mg IV Q3H PRN PRN Reason: Pain (6,7,8,9,10) Stop: 10/01/20 01:03 Last Admin: 09/17/20 08:57 Dose: 0.5 mg Documented by: Lactated Ringer's (Lr) 1,000 mls @ 100 mls/hr IV .Q10H [facility] Stop: 10/17/20 01:03 Last Admin: 09/17/20 02:59 Dose: 100 mls/hr Documented by: Levothyroxine Sodium (Levothyroxine Sodium 88 Mcg Tablet) 88 mcg PO DAILYBB GALDINO Stop: 10/17/20 06:29 Last Admin: 09/17/20 05:47 Dose: 88 mcg Documented by: Losartan Potassium (Losartan Potassium 50 Mg Tab) 100 mg PO DAILY GAL[facility]INO Stop: 10/17/20 08:59 Last Admin: 09/17/20 07:39 Dose: 100 mg Documented by: Melatonin (Melatonin 3 Mg Tab) 3 mg PO HS PRN PRN Reason: Sleep Stop: 10/17/20 01:03 Naloxone HCl (Naloxone Hcl 0.4 Mg/1 Ml Vial/Carp) 0.1 mg IV UD PRN PRN Reason: Opiate Overdose Stop: 10/17/20 02:35 Ondansetron HCl (Ondansetron Inj 2 Mg/Ml 2 Ml Vial) 4 mg IV Q6H PRN PRN Reason: Nausea And Vomiting Stop: 10/17/20 01:03 Pantoprazole Sodium (Pantoprazole 40 Mg Tab) 40 mg PO BID [facility] Stop: 10/17/20 08:59 Last Admin: 09/17/20 07:39 Dose: 40 mg Documented by: Polyethylene Glycol (Polyethylene (Miralax) 17 Gm Pack) 17 gm PO DAILY PRN PRN Reason: Constipation Stop: 10/17/20 02:35 Simvastatin (Simvastatin 40 Mg Tab) 40 mg PO QPM [facility] Stop: 10/17/20 20:59
[2020-09-17] MEDS ORDERED: PANTOprazole 40 MG TAB PO SCH (09:00)
[2020-09-17] MEDS ORDERED: LOSARTAN POTASSIUM 50 MG TAB PO SCH (09:00)
--- NOTE | 2020-09-17 10:03 | Orthopedic Consultation ---
Date of Consultation September 17, 2020 Assessment & Plan (1) Chapis-prosthetic femoral shaft fracture: Right distal periprosthetic femur fracture. Films have been reviewed. Case will be discussed with Dr. Chen who is on-call for the weekend. Patient will likely require either bracing with no nweightbearing or ORIF of the periprosthetic distal femur fracture. Await Dr. Chen's input. Continue bedrest; continue elevation of the right knee. Pain control as written. Maintain n.p.o. status until decision for surgery has been obtained. Supervising Physician Co-Signing Physician Notes Patient seen and examined. Notes and imaging reviewed. Patient questions answered. Right Periprosthetic distal femur fracture. Recommend application knee immobilizer brace and transfer to tertiary care facility for care and management. Cody Chen DO History of Present Illness Reason for Consultation: Right distal periprosthetic femur fracture Attending Physician: Timothy Cadena DO History of Present Illness Patient is a 80-year-old white female known to our practice who is status post right total knee revision by Dr. Loera in 2010. Patient states that she was doing well. She had no overt problems with the knee. She was using a cane and/or walker at times to ambulate around her home. She states she lives alone but has family very close by. She was in her kitchen and turned to go a different direction and lost her balance and fell to the floor. She had immediate pain in the right knee. She was unable to move the knee secondary to her pain. She denies loss of consciousness. Denies any history of shortness of breath, chest pain or lightheadedness prior to or after the fall. Currently she is awake and alert and appears comfortable. She states that her pain control is adequate at rest however if she tries to move the leg it becomes quite extreme. No other complaints at this time. She was brought to the emergency room where x-rays were taken. It was found that she had a right distal periprosthetic femur fracture. She was admitted by the hospitalist service and we have been asked to take care of her distal femur fracture. Allergies Allergy/AdvReac Type Severity Reaction Status Date / Time Sulfa (Sulfonamide Allergy Intermediate HIVES Verified 09/16/20 20:27 Antibiotics) Penicillins Allergy Unknown UNKNOWN Verified 09/16/20 20:27 warfarin Allergy Unknown RASH Verified 09/16/20 20:27 gabapentin AdvReac Intermediate dizziness Verified 09/16/20 20:27 amlodipine AdvReac Mild "numbness" Verified 09/16/20 20:27 lisinopril AdvReac Mild cough Verified 09/16/20 20:27 losartan AdvReac Mild cough Verified 09/16/20 20:27 acetaminophen AdvReac Unknown SKAKING Verified 09/16/20 20:27 omeprazole AdvReac Unknown HEART Verified 09/16/20 20:27 PROBLEMS oxycodone AdvReac Unknown SHAKING Verified 09/16/20 20:27 Home Medications Medication Instructions Recorded Confirmed Type albuterol sulfate 90 mcg/actuation 2 puffs INH Q6H PRN #8.5 gm 09/30/19 09/16/20 Rx aerosol inhaler simvastatin 40 mg tablet 40 mg PO QPM #90 tab 02/10/20 09/16/20 Rx cholecalciferol (vitamin D3) 25 3,000 unit PO DAILY cap 02/11/20 09/16/20 History mcg (1,000 unit) capsule losartan 100 mg tablet 100 mg PO DAILY #90 tab 03/11/20 09/16/20 Rx mecobalamin (vitamin B12) 1,000 1,000 mcg SUBLINGUAL DAILY 06/30/20 09/16/20 History mcg disintegrating tablet,sublingual levothyroxine 88 mcg capsule 88 mcg PO DAILY #90 cap 09/01/20 09/16/20 Rx rabeprazole 20 mg tablet,delayed 20 mg PO BID #60 tab 09/01/20 09/16/20 Rx release Patient History Medical History Anemia Arthritis Barretts esophagus EGD 05/2020 Chicken pox Cold sore Gallbladder disease History of depression History of hypertension Hx of cholecystitis Hx of fracture of radius Hx of herpes simplex infection Hx of uterine leiomyoma Osteopenia Osteoporosis Radius fracture Tubular adenoma of colon Surgical History History of revision of total knee arthroplasty History of tubal ligation S/P cholecystectomy S/P tonsillectomy S/P total knee arthroplasty S/P tubal ligation Status post wisdom tooth extraction Family History Father Myocardial infarction Diabetes Mother Diabetes Brother Leukemia age 77 Daughter Rheumatoid arthritis Other Breast cancer Colorectal cancer Endometriosis Osteoporosis Uterine cancer Denies family history of Ovarian cancer Social History Smoking Status: Never smoker Second Hand Exposure: No; Hx Alcohol Use: Yes Alcohol type: wine Hx Substance Use: No Preferred Language: Kuwaiti Communication Ability: Effective Visual Impairment: No Limitations Hearing Ability: Normal Bedspring Assembler Required: No Beliefs That Will Affect Care: None marital status: Current Living Situation: Alone current occupational status: retired Feels Safe at Home: Yes Childhood Exposure to Second-Hand Smoke: No caffeine: Yes Dental Care, Regularly: No Physical Activity Frequency: Does not Exercise Seatbelt Use: always Sunscreen Use: Yes Assistive Devices: Denture - Upper, Denture - Lower, Glasses and Walker Review of Systems Review of Systems: All systems reviewed & are unremarkable except as noted in HPI & below Physical Exam Physical Exam: Patient is an obese 80-year-old white female, no acute distress, alert and oriented x3, pleasant and cooperative. Focusing exam on the right lower extremity, it is elevated on 1 pillow. The knee is slightly flexed at approximately 20 degrees. The knee itself is swollen compared to the left. She has tenderness on palpation over the knee but is not hot or erythematous. She has a well-healed incision down the central portion of her knee anteriorly secondary to her previous revision TKA. Any attempts to move the knee because her moderate to severe pain. Calves are soft and nontender. She has good range of motion of her right ankle and toes. Hip is nontender on palpation but range of motion is deferred secondary to fracture of the right knee. Left lower extremity is unaffected. Is nontender at the hip, knee, ankle. Range of motion is within normal limits. Upper extremities are nontender at the shoulders, elbows, wrists. Range of motion is within normal limits. She denies any cervical, thoracic, lumbar pain at this time. Neurovascular is intact. She has good sensation down the right lower extremity and distal pulses are equal bilaterally of the upper lower extremities. There is no gross motor or sensory loss seen at this time. Results & Data ([facility]) Vital Signs (Past 12 Hours) Vital Signs Temp Pulse Pulse Resp BP BP Pulse Ox 09/17/20 07:24 37.0 C 90 16 164/77 H 97 09/17/20 02:30 36.5 C 104 H 20 160/77 H 97 09/16/20 23:14 96 H 17 154/83 H 98 09/16/20 22:32 91 H 15 97 09/16/20 22:31 91 H 14 134/80 97 09/16/20 22:30 99 H 15 97 09/16/20 22:01 87 15 96 09/16/20 22:00 82 16 147/66 H 97 Laboratory Results Laboratory Results WBC 11.03 K/uL (4.8-10.8) H 09/16/20 20:44 RBC 4.04 M/uL (4.2-5.4) L 09/16/20 20:44 Hgb 12.5 g/dL (12.0-16.0) 09/16/20 20:44 Hct 37.2 % (37-47) 09/16/20 20:44 MCV 92.1 fL (80-100) 09/16/20 20:44 MCH 30.9 pg (25-34) 09/16/20 20:44 MCHC 33.6 g/dL (32-36) 09/16/20 20:44 RDW Std Deviation 45.5 fL (36.4-46.3) 09/16/20 20:44 RDW Coeff of Larry 13.4 % (11.5-14.5) 09/16/20 20:44 Plt Count 187 K/uL (130-400) 09/16/20 20:44 MPV 10.0 fL (7.4-10.4) 09/16/20 20:44 Immature Gran % (Auto) 0.8 % 09/16/20 20:44 Neut % (Auto) 76.6 % 09/16/20 20:44 Lymph % (Auto) 11.0 % 09/16/20 20:44 [place] % (Auto) 10.0 % 09/16/20 20:44 Eos % (Auto) 1.3 % 09/16/20 20:44 Baso % (Auto) 0.3 % 09/16/20 20:44 Neut # (Auto) 8.46 K/uL (1.4-6.5) H 09/16/20 20:44 Lymph # (Auto) 1.21 K/uL (1.2-3.4) 09/16/20 20:44 [place] # (Auto) 1.10 K/uL (0.11-0.59) H 09/16/20 20:44 Eos # (Auto) 0.14 K/uL (0-0.5) 09/16/20 20:44 Baso # (Auto) 0.03 K/uL (0-0.2) 09/16/20 20:44 Immature Gran # (Auto) 0.09 K/uL (0.00-0.02) H 09/16/20 20:44 PT 10.3 Seconds (9.0-12.0) 09/16/20 20:44 INR 1.0 (0.9-1.1) 09/16/20 20:44 APTT 23.2 Seconds (21.0-31.0) 09/16/20 20:44 PTT Ratio 0.9 09/16/20 20:44 Sodium 140 mmol/L (136-145) 09/16/20 20:44 Potassium 3.8 mmol/L (3.5-5.1) 09/16/20 20:44 Chloride 109 mmol/L (98-107) H 09/16/20 20:44 Carbon Dioxide 26 mmol/L (21-32) 09/16/20 20:44 Anion Gap 5.0 (3-11) 09/16/20 20:44 BUN 17 mg/dl (7-18) 09/16/20 20:44 Creatinine 1.06 mg/dl (0.6-1.2) 09/16/20 20:44 Est Cr Clr Drug Dosing 46.5 ml/min 09/16/20 20:44 Est GFR ( Amer) 57.8 09/16/20 20:44 Est GFR (Non-Af Amer) 49.9 09/16/20 20:44 BUN/Creatinine Ratio 15.8 (10-20) 09/16/20 20:44 Glucose 109 mg/dl (70-99) H 09/16/20 20:44 Calcium 9.2 mg/dl (8.5-10.1) 09/16/20 20:44 Total Bilirubin 0.4 mg/dl (0.2-1) 09/16/20 20:44 AST 20 U/L (15-37) 09/16/20 20:44 ALT 17 U/L (12-78) 09/16/20 20:44 Alkaline Phosphatase 81 U/L (45-117) 09/16/20 20:44 Total Protein 6.9 gm/dl (6.4-8.2) 09/16/20 20:44 Albumin 3.6 gm/dl (3.4-5.0) 09/16/20 20:44 Globulin 3.2 gm/dl (2.5-4.0) 09/16/20 20:44 Albumin/Globulin Ratio 1.1 (0.9-2) 09/16/20 20:44 Urine Color Dark Yellow 09/16/20 22:15 Urine Appearance Clear (Clear) 09/16/20 22:15 Urine pH 5.0 (4.5-7.5) 09/16/20 22:15 Ur Specific [place] 1.024 (1.000-1.030) 09/16/20 22:15 Urine Protein Negative (Negative) 09/16/20 22:15 Urine Glucose (UA) Negative (Negative) 09/16/20 22:15 Urine Ketones Trace (Negative) H 09/16/20 22:15 Urine Blood Negative (Negative) 09/16/20 22:15 Urine Nitrite Negative (Negative) 09/16/20 22:15 Urine Bilirubin Negative (Negative) 09/16/20 22:15 Urine Urobilinogen Negative (Negative) 09/16/20 22:15 Ur Leukocyte Esterase Negative (Negative) 09/16/20 22:15 COVID-19 Eval Order CovFluRsv at [facility] 09/17/20 Unknown SARS-CoV-2 (PCR) NEGATIVE (Negative) 09/17/20 Unknown Influenza Type A (PCR) Negative (Neg) 09/17/20 Unknown Influenza Type B (PCR) Negative (Neg) 09/17/20 Unknown RSV (RT-PCR) Negative (Neg) 09/17/20 Unknown Impressions Chest X-Ray 09/16/20 20:13 XR chest 1V portable HISTORY: Fall. Pt rt hip pain COMPARISON: 08/10/2017. FINDINGS: No focal lung consolidations to suggest pneumonia. No evidence for pulmonary edema. The heart is normal in size. No pleural effusions. No pneumothorax. Prior cholecystectomy. No rib fractures. IMPRESSION: No acute process. ACT 112: Negative or not required by law. Electronically signed by: Jorge Chamberlain M.D. 09/17/2020 8:03 AM Femur X-Ray 09/16/20 20:13 XR femur RT 2V routine, XR tibia fibula RT 2V, XR pelvis 1-2V routine CLINICAL HISTORY: Pt c/o Rt hip pain COMPARISON STUDY: None. FINDINGS: Hapj-bm-hlqvnfia osteoarthritis within the bilateral hips. No fracture or dislocation within the pelvis or hips. The sacrum is intact. Nondisplaced periprosthetic fracture within the distal right femur. The bones are osteopenic. There is a right total knee arthroplasty. The hardware is intact. There is a small knee effusion. No fractures within the right tibia or fibula. IMPRESSION: 1. Nondisplaced periprosthetic fracture within the distal right femur. 2. No fracture or dislocation within the pelvis, hips, right tibia, or right fibula. ACT 112: Negative or not required by law. Electronically signed by: Jorge Chamberlain M.D. 09/17/2020 7:30 AM Pelvis X-Ray 09/16/20 20:13 XR femur RT 2V routine, XR tibia fibula RT 2V, XR pelvis 1-2V routine CLINICAL HISTORY: Pt c/o Rt hip pain COMPARISON STUDY: None. FINDINGS: Rmyo-tt-bwcrivqc osteoarthritis within the bilateral hips. No fracture or dislocation within the pelvis or hips. The sacrum is intact. Nondisplaced periprosthetic fracture within the distal right femur. The bones are osteopenic. There is a right total knee arthroplasty. The hardware is intact. There is a small knee effusion. No fractures within the right tibia or fibula. IMPRESSION: 1. Nondisplaced periprosthetic fracture within the distal right femur. 2. No fracture or dislocation within the pelvis, hips, right tibia, or right fibula. ACT 112: Negative or not required by law. Electronically signed by: Jorge Chamberlain M.D. 09/17/2020 7:30 AM Tibia/Fibula X-Ray 09/16/20 20:14 XR femur RT 2V routine, XR tibia fibula RT 2V, XR pelvis 1-2V routine CLINICAL HISTORY: Pt c/o Rt hip pain COMPARISON STUDY: None. FINDINGS: Lmyf-di-gqebheoo osteoarthritis within the bilateral hips. No fracture or dislocation within the pelvis or hips. The sacrum is intact. Nondisplaced periprosthetic fracture within the distal right femur. The bones are osteopenic. There is a right total knee arthroplasty. The hardware is intact. There is a small knee effusion. No fractures within the right tibia or fibula. IMPRESSION: 1. Nondisplaced periprosthetic fracture within the distal right femur. 2. No fracture or dislocation within the pelvis, hips, right tibia, or right fibula. ACT 112: Negative or not required by law. Electronically signed by: Jorge Chamberlain M.D. 09/17/2020 7:[address] 09/16/20 22:08 CT hip RT wo con CLINICAL HISTORY: Right hip pain. COMPARISON STUDY: Right femur radiographs June 27, 2015 and September 16, 2020. TECHNIQUE: Axial images of the right hip were obtained without IV contrast. S agittal and coronal reconstructions were viewed. Automated exposure control was utilized for the study. A dose lowering technique was utilized adhering to the principles of ALARA. FINDINGS: Incidental note is made of a Galindo balloon within the bladder. There is gas within the bladder. No acute fracture within the right hip is noted. There is moderate right hip osteoarthritis. No evidence for avascular necrosis is noted. There is no suspicious osseous lesion within the right hip. No hematoma is identified within the adjacent soft tissues. There is no right inguinal lymphadenopathy. No acute fracture is identified within visualized portions of the right hemipelvis. IMPRESSION: 1. No acute fracture or dislocation within the right hip. 2. Moderate osteoarthritis of the right hip. ACT 112: Negative or not required by law. Electronically signed by: Favio Cobos M.D. 09/17/2020 7:[address] 09/16/20 22:29 CT femur RT wo con CLINICAL HISTORY: Right knee pain. COMPARISON STUDY: Right knee and right femur radiographs June 27, 2015. TECHNIQUE: Axial images of the right femur were obtained without IV contrast. Sagittal and coronal reconstructions were viewed. Automated exposure control was utilized for the study. A dose lowering technique was utilized adhering to the principles of ALARA. FINDINGS: Note is made of an acute comminuted mildly displaced periprosthetic fracture of the distal right femur. Fracture begins 2.4 cm proximal to the femoral component of the right knee arthroplasty. The fracture extends to the lateral metadiaphysis of the right femur. The CT of the right tibia and fibula will be reported separately. No suspicious osseous lesions are noted. Alignment of the right hip is anatomic. There is no proximal right femoral fracture. IMPRESSION: Acute comminuted mildly displaced periprosthetic fracture of the right femur, as described above ACT 112: Negative or not required by law. Electronically signed by: Favio Cobos M.D. 09/17/2020 7:[address] 09/16/20 22:29 RIGHT TIBIA/FIBULA CT CT DOSE: HISTORY: Right lower leg pain. TECHNIQUE: Multiaxial CT images of the right lower leg were performed and reformatted in the sagittal and coronal plane without the use of contrast. A dose lowering technique was utilized adhering to the principles of ALARA. COMPARISON: None. FINDINGS: There is a right total knee arthroplasty. The hardware appears intact. No fracture or dislocation within the right tibia or fibula. IMPRESSION: No fractures within the right lower leg. ACT 112: Negative or not required by law. Electronically signed by: Jorge Chamberlain M.D. 09/17/2020 7:25 AM
--- NOTE | 2020-09-17 12:59 | Electrocardiogram Report ---
Test Reason : Blood Pressure : / mmHG Vent. Rate : 081 BPM Atrial Rate : 081 BPM P-R Int : 184 ms QRS Dur : 070 ms QT Int : 370 ms P-R-T Axes : 038 -15 052 degrees QTc Int : 429 ms Normal sinus rhythm Minimal voltage criteria for LVH, may be normal variant Borderline ECG When compared with ECG of 10-AUG-2017 14:16, No significant change was found Confirmed by Bernard Palacio ([id number]) on 09/17/2020 12:59:01 PM Referred By: REFERRED SELF Confirmed By:Bernard Palacio
--- NOTE | 2020-09-17 16:09 | Discharge Summary ---
Date of Service September 17, 2020 Admission HPI Per Admitting Provider 80 yo F PMHx HTN, HLD, hypothyroidism, GERD, osteopenia, right TKA presented to ER for fall at home with right leg pain. Reports that around 6pm she was turning to grab her coffee pot when she fell and hit her right leg on fall, causing immediate right leg pain. In the ER patient had imagining which included CT scan right femur which showed periprosthetic right femur fracture. Hospitalist service was consulted for admission for pain control and Ortho consult for evaluation of possible repair. Patient denies shortness of breath, chest pain, abdominal pain, nausea or vomiting, dizziness or headache. Admission Exam Per Admitting Provider Constitutional: WD/WN, vitals as above Eyes: PERRL, conjunctivae normal, anicteric sclerae ENMT: external ear and nose normal, oropharynx normal Neck: normal visual inspection Respiratory: normal respiratory effort, lungs clear to auscultation Cardiovascular: RRR, no murmur, no edema Gastrointestinal (Abdomen): normal bowel sounds, soft, nontender, no hepatosplenomegaly Musculoskeletal: Extremities: no cyanosis and no clubbing pain in all planes of motion for RLE; DP and PT pulses palpable Skin: no rashes, warm and dry Neurologic: AAOx3, normal speech. Bilateral UE, LE, and face without sensory or motor deficits. No tremor. Psychiatric: A+Ox3, euthymic affect Principal Diagnosis Periprosthetic knee fracture Discharge Exam General: Lying in bed in intermittent pain HEENT: Normocephalic atraumatic Neck: Normal to visual inspection, trachea midline Cardiac: Regular rate and rhythm I did not appreciate any significant murmurs rubs or gallops, normal S1, normal S2, negative calf tenderness on the left side Respiratory: Clear to auscultation bilaterally with symmetrical chest expansion did not appreciate any significant wheezes, rales, rhonchi GI: Soft, nontender, nondistended, bowel sounds present in all 4 quadrants MSK: Right lower extremity painful Neuro: Alert and oriented x4 Psych: Calm and cooperative with the interview Discharge Data Allergies Allergy/AdvReac Type Severity Reaction Status Date / Time Sulfa (Sulfonamide Allergy Intermediate HIVES Verified 09/16/20 20:27 Antibiotics) Penicillins Allergy Unknown UNKNOWN Verified 09/16/20 20:27 warfarin Allergy Unknown RASH Verified 09/16/20 20:27 gabapentin AdvReac Intermediate dizziness Verified 09/16/20 20:27 amlodipine AdvReac Mild "numbness" Verified 09/16/20 20:27 lisinopril AdvReac Mild cough Verified 09/16/20 20:27 losartan AdvReac Mild cough Verified 09/16/20 20:27 acetaminophen AdvReac Unknown SKAKING Verified 09/16/20 20:27 omeprazole AdvReac Unknown HEART Verified 09/16/20 20:27 PROBLEMS oxycodone AdvReac Unknown SHAKING Verified 09/16/20 20:27 Consultations 09/17/20 01:04 Consult Orthopedic Surgery Routine 09/17/20 01:28 ED Decision to Admit Stat 09/17/20 15:30 Burn CD for patient Stat Ordered Studies 09/16/20 22:08 CT hip RT wo con Urgent 09/16/20 22:29 CT femur RT wo con Urgent CT tib/fib RT wo con Urgent Hospital Course (1) Chapis-prosthetic femoral shaft fracture: 80 yo F PMHx HTN, HLD, hypothyroidism, GERD, osteopenia, right TKA admitted for right periprosthetic femur fracture. #Right periprosthetic femur fracture: Hx of Knee replacement performed by Dr. Bush with [facility]. Had a fall today with immediate leg/knee pain, CT femur shows periprosthetic right femur fracture.U Orthopedics consulted, Has remained n.p.o. overnight in the event that procedure will be performed. Will need evaluation of osteoporosis on discharge given mechanism of fall. Patient has multiple medication intolerances, Dilaudid for pain control. -IV Dilaudid for pain control -Increased frequency to every 2 hours as needed as patient reports her pain is not well controlled -Orthopedics consulted following recommendations -plan to tx pt to [facility] HTN: Continued losartan 100 mg daily GERD: Continued PPI; pantoprazole while admitted. HLD: Continued home simvastatin. Hypothyroidism: Continued home levothyroxine. Jose Miguel Luke MD PGY 2, [facility] This chart was completed utilizing [employer] voice recognition software. Grammatical errors, random word insertions, pronoun errors, and in complete sentences are an occasional consequence of the system. Any questions or concerns about the content, text, or information contained within the body of this dictation should be addressed directly to the physician for clarification. (2) Dyslipidemia: (3) Hypertension: (4) Hypothyroid: (5) GERD (gastroesophageal reflux disease): Total Time Total Time Spent Total Time Spent (In Minutes): <30 Discharge Plan Discharge Items Patient Disposition: Transfer Acute Care Hospital Reason For Visit: PERIPROSTHETIC RIGHT FEMUR FRACTURE Discharge Diagnosis: periprosthetic femur fracture Activity: Per Instructions section Activity Comment: per orthopedics Non-emergency contact: Primary Care Provider and Surgeon Call non-emergency contact if: you have any medication questions Follow-up/Referrals: Juan Goss, [Primary Care Provider] - Diet: Regular Addtl Attending Provider Instructions: per tejas Pending Studies at Discharge: No Stand-Alone Forms: My App[employer] Skilled Items Patient informed of condition?: Yes DNR: No Discharge Level of Care: Other Communicable Disease: No Discharge Prognosis: Other Lines: Peripheral IV Urinary Catheter: Yes Medications and DC Order Prescriptions: Continued albuterol sulfate [ProAir HFA] 90 mcg/actuation HFA aerosol inhaler 2 puffs INH Q6H PRN (Reason: shortness of breath or wheezing) Qty: 8.5 RF: 1 simvastatin 40 mg tablet 40 mg PO QPM Qty: 90 RF: 3 losartan 100 mg tablet 100 mg PO DAILY Qty: 90 RF: 3 mecobalamin (vitamin B12) 1,000 mcg tablet,disintegrating 1,000 mcg sublingual DAILY RF: 0 levothyroxine 88 mcg capsule 88 mcg PO DAILY Qty: 90 RF: 3 rabeprazole 20 mg tablet,delayed release (DR/EC) 20 mg PO BID Qty: 60 RF: 2 cholecalciferol (vitamin D3) 25 mcg (1,000 unit) capsule 3,000 unit PO DAILY RF: 0 Discharge Orders: Discharge Order (Routine); Ordered 09/17/20 Ordered By: Timothy Cadena Admission Data Admit Date/Time: 09/17/20 01:04 Attending Provider: Timothy Cadena Admit Provider: Laly Avila Primary Care Provider: Juan Goss Other Providers: Clemente Duron ; Hayden Villarreal ; [facility] Supervising Physician Co-Signing Physician Notes I personally examined the patient and verified all luque points of history and exam, discussed case, and agree with decision making with Dr Luke. Lots of pain. 0.5 mg Dilaudid not helping. Discussed with orthopedicswould likely benefit from surgical repair, but beyond the scope of what they are able to do here. Recommended transfer. Contacted [facility] trauma who accepted patient for transfer. Vitals noted, in general she is awake and alert does appear in distress due to pain. HEENT normocephalic atraumatic mucous membranes moist. Breathing unlabored no accessory muscle use good effort. Skin shows no rashes no pallor or icterus. Neuro shows no focal deficits. Periprosthetic femur fractureincrease Dilaudid, transfer for definitive management. Outpatient bone health management. Otherwise as above, appears medically stable. Resident Activity Tracking Resident Involvement: Resident Care Provided Care Provided: Adult [facility]
[2020-09-17] MEDS ORDERED: HYDROmorphone INJ 1 MG/ML SYRINGE IV PRN (16:19)
[2020-09-17] MEDS ORDERED: HYDROmorphone INJ 1 MG/ML SYRINGE IV STA (16:22)
--- NOTE | 2020-09-17 16:56 | Billing Data ---
Date of Service September 17, 2020 Coding Level of Care Code D/C Day Management <30 mins
[2020-09-17] MEDS ORDERED: SIMVASTATIN 40 MG TAB PO SCH (21:00)
--- NOTE | 2020-09-17 21:44 | Billing Data ---
Date of Service September 17, 2020 Coding Level of Care Code 62008 Initial Inpt Care Lvl 3
== END 2020-09-17 19:48 | disposition short-term general hospital (02) | DRG 534 ==
LOC: ED 19:54 → 3N 09-17 01:04 → SUATTDRO 09-17 01:04 → 3N 09-17 02:20